=== PATIENT | female | born 1965 | race Caucasian/White ===

== ENCOUNTER → 2016-12-13 | Outpatient (CLI) | payer BC ==
[~2016-12-13] MED LIST: ACET-1311 PO; ACET-749 PO; ASPI-390 PO; ATV5 PO; ATV5X PO; BUTA1CAP17 PO; BUTACAP10 PO; CLON0.1T12 PO; CLR10 PO; CTP1CL PO; CYAN50TA2 PO; CYM30 PO; DIPH50TA10 PO; DULO-24 PO; FLNIN/ NAE; GABA300C19 PO; INDSR/120 PO; LAMO25TA PO; LMC25 PO; LRS10 PO; MAGN400T6 PO; MCRB100HP PO; METH4TAB31 PO; NARA1TAB14 PO; NCDT21 EXT; NORT10CA PO; NORT10CA4 PO; NORT25CA PO; NORT50CA PO; NORT75CA2 PO; NRT/25 PO; NYSS/ PO; OMEP40CA41 PO; ONDA4TAB9 PO; OXYC-57 PO; POTA99TA PO; POTASSIUM; PRED20TA PO; PROC1TAB5 PO; PROP120C PO; RXC5 PO; TPM25 PO; ULT50 PO; VERA120T65 PO; VERA180C3 PO; VERA240C3 PO; VRPSR180 PO; ZLF/50 PO; ZOLM1TAB3 PO
--- NOTE | 2016-12-13 14:07 | DIAGNOSTIC IMAGING REPORT ---
CT OF THE ABDOMEN AND PELVIS WITHOUT CONTRAST, STONE PROTOCOL CLINICAL HISTORY: Right-sided abdominal pain and hematuria. Evaluate for stone. COMPARISON STUDY: CT of the abdomen and pelvis June 27, 2016. TECHNIQUE: Helical axial images of the abdomen and pelvis were obtained without IV or oral contrast according to renal stone protocol. FINDINGS: No renal, ureteral or bladder calculi are identified although evaluation is mildly compromised by streak artifact from lumbar spine hardware. There is no hydronephrosis or hydroureter. Evaluation of the remainder of the abdomen and pelvis is suboptimal on this unenhanced exam. Unenhanced images of liver, spleen, adrenal glands and pancreas are normal. The caliber of small and large bowel are normal. There is a moderate amount of stool within the colon. There is minimal stool within the rectum. The appendix is not visualized but there is no right lower quadrant inflammation. No lymphadenopathy is identified on this unenhanced exam. There is no ascites. No suspicious osseous lesions are present. IMPRESSION: 1. No urinary calculi or hydronephrosis. 2. No acute process identified within the abdomen or pelvis on unenhanced exam. Nonvisualization of the appendix but no right lower quadrant inflammation. 3. Moderate amount of stool within the colon. Electronically signed by: Rehan Damon M.D. 12/13/2016 2:05 PM Dictated Date/Time: 12/13/2016 1:59 PM
== END | disposition home or self-care (01) ==
LOC: C.CTS 13:43
PROVIDERS: ATTEND Nurse Practitioner Family
DX: R10.31 Right lower quadrant pain (principal); M54.5 Low back pain; R31.9 Hematuria, unspecified; R11.0 Nausea

== ENCOUNTER 2017-01-24 16:50 | Emergency (ER) | payer BC ==
[~2017-01-24] VITALS: Ht 165.1 cm; Wt 49.6 kg
[~2017-01-24 16:50] MED LIST changes: -ACET-749 PO; -ASPI-390 PO; -ATV5 PO; -ATV5X PO; -BUTACAP10 PO; -CLR10 PO; -CTP1CL PO; -CYAN50TA2 PO; -CYM30 PO; -DIPH50TA10 PO; -FLNIN/ NAE; -LAMO25TA PO; -LMC25 PO; -LRS10 PO; -MAGN400T6 PO; -MCRB100HP PO; -METH4TAB31 PO; -NARA1TAB14 PO; -NCDT21 EXT; -NORT10CA PO; -NORT10CA4 PO; -NORT25CA PO; -NORT50CA PO; -NRT/25 PO; -NYSS/ PO; -OMEP40CA41 PO; -ONDA4TAB9 PO; -POTA99TA PO; -POTASSIUM; -PRED20TA PO; -PROC1TAB5 PO; -PROP120C PO; -RXC5 PO; -TPM25 PO; -ULT50 PO; -VERA120T65 PO; -VERA180C3 PO; -VERA240C3 PO; -VRPSR180 PO; -ZLF/50 PO
[2017-01-24 16:56] VITALS: TEMP 36.8; Ht 165.1 cm; Wt 49.6 kg
[2017-01-24] MEDS ORDERED: MoRPHine SULFATE 10 MG/ML CARP/VIAL IM STA (17:08)
[2017-01-24] MEDS ORDERED: DiphenhydrAMINE HCL 50 MG/ML VIAL IM STA (17:08)
[2017-01-24] MEDS ORDERED: KETOROLAC TROMETHAMINE 60 MG/2 ML VIAL IM STA (17:08)
--- NOTE | 2017-01-24 17:11 | EMERGENCY ROOM VISIT NOTE ---
History Report prepared by Rodolfo: Brandan Bennett Under the Supervision of: Dr. Jason Sanchez D.O. First contact with patient: 16:58 Chief Complaint: HEADACHE Stated Complaint: MIGRAINE History of Present Illness The patient is a 51 year old female who presents to the Emergency Room with complaints of persistent migraine for the past 8 days. She describes the discomfort in her head as constant and severe. The discomfort is on her right side behind her right eye and goes to the back of her neck and into her head. She also complains of nausea and vomiting. The patient started taking Topamax last night and notes that has not helped relieve her symptoms. The patient presented to her PCP last night and was given a shot of Toradol. This helped calm her down, but did not relieve her symptoms. She denies fevers or weakness. The patient notes this is like her normal migraines. Source of History: patient Onset: 8 days Position: head Symptom Intensity: severe Timing: constant, other (persistent) Associated Symptoms: + nausea, + vomiting, No fevers, No weakness Review of Systems See HPI for pertinent positives & negatives. A total of 10 systems reviewed and were otherwise negative. Past Medical & Surgical Medical Problems: (1) Chronic migraine without aura (2) DDD (degenerative disc disease) (3) H/O gastric ulcer Family History No pertinent family history Social History Smoking Status: Current Every Day Smoker Alcohol Use: occasionally Marital Status: Current/Historical Medications Scheduled Acetaminophen (Tylenol), 650 MG PO PRN Dinxtifodf-Nnekslemetdyc-Zegtk (Fioricet), 1 TAB PO PRN UD Clonidine Hcl (Catapres), 1 TAB PO BID Cyanocobalamin (Vitamin B-12), 1 TAB PO QAM Duloxetine HCl (Cymbalta), 1 CAP PO QAM Gabapentin (Neurontin), 600 MG PO TID Nortriptyline Hcl (Pamelor), 75 MG PO QHS Omeprazole (Prilosec), 40 MG PO QAM Propranolol Hcl (Inderal La), 120 MG PO QAM Zolmitriptan (Zomig), 5 MG PO PRN Scheduled PRN Oxycodone/Acetaminophen 5MG/325MG (Percocet 5MG/325MG), 1-2 TABLETS PO Q4H PRN for Pain Allergies Coded Allergies: Penicillins (Verified Allergy, Severe, ANAPHYLAXIS, 08/28/16) Sulfa Antibiotics (Verified Allergy, Intermediate, RASH, 08/28/16) Ciprofloxacin (Verified Allergy, Mild, Rash, 08/28/16) Clarithromycin (Verified Allergy, Mild, itching, 08/28/16) Quinolones (Verified Allergy, Mild, ITCHING RASH, 08/28/16) Lesage (Verified Adverse Reaction, Severe, SUICIDAL,ANGRY, 09/04/16) Oxycodone (Verified Adverse Reaction, Mild, STOMACH ISSUES, 09/04/16) Ketorolac Tromethamine (Verified Adverse Reaction, Unknown, HX STOMACH ULCERS-TOLD NOT TO TAKE, 09/04/16) NSAIDs (Verified Adverse Reaction, Unknown, HX STOMAXCH ULCERS-TOLD NOT TO TAKE, 09/04/16) Tramadol (Verified Adverse Reaction, Unknown, HX STOMACH ULCERS-NOT TO TAKE, 09/04/16) Physical Exam Vital Signs Date Time Temp Pulse Resp B/P Pulse Ox O2 Delivery O2 Flow Rate FiO2 01/24/17 18:27 65 16 158/84 100 01/24/17 16:56 36.8 77 18 155/92 100 Room Air Physical Exam GENERAL: Patient is awake alert, uncomfortable and mildly anxious appearing. EYES: The conjunctivae are clear. The pupils are round and reactive. EARS, NOSE, MOUTH AND THROAT: The nose is without any evidence of any deformity. Mucous membranes are moist tongue is midline NECK: The neck is nontender and supple. RESPIRATORY: Normal respiratory effort is noted there is no evidence of wheezing rhonchi or rales CARDIOVASCULAR: Regular rate and rhythm noted there no murmurs rubs or gallops normal S1 normal S2 GASTROINTESTINAL: The abdomen is soft. Bowel sounds are present in all quadrants. Abdomen is nontender MUSCULOSKELETAL/EXTREMITIES: There is no evidence of gross deformity full range of motion is noted in the hips and shoulders SKIN: There is no obvious evidence of any rash. There are no petechiae, pallor or cyanosis noted. NEUROLOGIC: Patient is awake alert and oriented x3 strength is symmetric patellar reflexes are 2+ bilaterally Medical Decision & Procedures Medications Administered Medications (Trade) Dose Ordered Sig/Yanet Route Start Time Stop Time Status Last Admin Dose Admin Morphine Sulfate (MoRPHine SULFATE INJ) 10 mg NOW STAT IM 01/24/17 17:08 01/24/17 17:09 DC 01/24/17 17:08 10 MG Ondansetron HCl (Zofran Odt) 4 mg ONE ONCE PO 01/24/17 17:15 01/24/17 17:16 DC 01/24/17 17:20 4 MG Diphenhydramine HCl (Benadryl Inj) 25 mg NOW STAT IM 01/24/17 17:08 01/24/17 17:09 DC 01/24/17 17:19 25 MG Ketorolac Tromethamine (Toradol Inj) 60 mg NOW STAT IM 01/24/17 17:08 01/24/17 17:09 DC 01/24/17 17:20 60 MG ED Course 170: The patient was evaluated in room B3. A complete history and physical examination were performed. 1708: Ordered Toradol Inj 60 mg IM, Benadryl Inj 25 mg IM, Morphine Sulfate 10 mg IM. 171: Ordered Zofran Odt 4 mg PO. 1755: At this time, I reevaluated the patient and she was feeling better. 1814: Upon reevaluation, the patient is resting. I discussed the results and treatment plan with her. She verbalized agreement of the treatment plan. The patient was discharged home. Medical Decision Differential diagnosis: Etiologies such as migraine headache, meningitis, sinusitis, CO exposure, ICH, SAH, infection, tumor, headache, sinus thrombosis, arterial dissection, as well as others were entertained. Nursing notes reviewed. The patient is a 51-year-old female who presented to the emergency department for an evaluation of headache. The patient states that she has a history of chronic headache and this feels similar to previous headaches in the past. The patient did not have any fever or meningismus. She had no focal neurologic deficits on physical exam. I did review the patient's previous electronic medical records. She was treated with medications that she is received in the past. On subsequent reevaluation she was feeling much better. She was encouraged to rest and avoid any strenuous activity. She was also encouraged to call her primary care physician to schedule a follow-up appointment to discuss the change in her headache pattern. She was also encouraged to return to the emergency department immediately if symptoms change worsen or the need arises. Otherwise she was encouraged to continue all medications as prescribed. Impression Primary Impression: Migraine Additional Impression: Head ache Scribe Attestation The scribe's documentation has been prepared under my direction and personally reviewed by me in its entirety. I confirm that the note above accurately reflects all work, treatment, procedures, and medical decision making performed by me. Departure Information Dispostion Home / Self-Care Referrals Nadine Marte (PCP) Forms HOME CARE DOCUMENTATION FORM, IMPORTANT VISIT INFORMATION Patient Instructions Headaches Migraine and Tension, My [facility] Additional Instructions Follow-up with your family doctor soon as possible. Continue all medications as prescribed. Rest and avoid any strenuous activity. Problem Qualifiers Primary Impression: Migraine Migraine type: without aura Status migrainosus presence: without status migrainosus Intractability: not intractable Qualified Codes: G43.009 - Migraine without aura, not intractable, without status migrainosus Additional Impression:
[2017-01-24] MEDS ORDERED: ONDANSETRON 4MG OD TAB PO ONE (17:15)
[2017-01-24 18:27] VITALS: BP 158/84; PULSE 65; O2SAT 100
[2017-02-16] MEDS ORDERED: NORT10CA PO (15:31)
[2017-02-16] MEDS ORDERED: NARA1TAB14 PO (18:49)
[2017-02-16] MEDS ORDERED: ACET-749 PO (18:49)
[2017-02-20] MEDS ORDERED: METH4TAB31 PO (10:20)
[2017-02-20] MEDS ORDERED: NORT10CA4 PO (10:20)
[2017-02-20] MEDS ORDERED: LMC25 PO ×2 (10:20→14:24)
[2017-02-20] MEDS ORDERED: VRPSR180 PO (10:20)
[2017-02-20] MEDS ORDERED: NCDT21 EXT (10:20)
[2017-02-20] MEDS ORDERED: NORT25CA PO (14:24)
[2017-03-11] MEDS ORDERED: POTASSIUM (11:04)
[2017-03-11] MEDS ORDERED: LAMO25TA PO (11:04)
[2017-03-11] MEDS ORDERED: NORT50CA PO (11:06)
[2017-03-19] MEDS ORDERED: ATV5 PO (10:25)
[2017-03-19] MEDS ORDERED: RXC5 PO (10:25)
[2017-04-22] MEDS ORDERED: CLR10 PO (11:04)
[2017-04-22] MEDS ORDERED: VRPSR180 PO (11:04)
[2017-04-22] MEDS ORDERED: PROC1TAB5 PO (11:04)
[2017-04-22] MEDS ORDERED: OMEP40CA41 PO (11:41)
[2017-07-11] MEDS ORDERED: NRT/25 PO (14:36)
[2017-07-11] MEDS ORDERED: PRED20TA PO (14:36)
== END 2017-01-24 18:31 | disposition home or self-care (01) ==
LOC: C.EDB 16:51
DX: G43.909 Migraine, unspecified, not intractable, without status migrainosus (principal); F17.200 Nicotine dependence, unspecified, uncomplicated; Z87.11 Personal history of peptic ulcer disease; Z79.899 Other long term (current) drug therapy; Z88.0 Allergy status to penicillin; Z88.2 Allergy status to sulfonamides; Z88.5 Allergy status to narcotic agent; Z88.8 Allergy status to other drugs, medicaments and biological substances

== ENCOUNTER 2017-01-26 14:00 | Emergency (ER) | payer BC ==
[~2017-01-26] VITALS: Ht 165.1 cm; Wt 50.1 kg
[2017-01-26 14:10] VITALS: TEMP 36.9; Ht 165.1 cm; Wt 50.1 kg
[2017-01-26] MEDS ORDERED: PROCHLORPERAZINE 5 MG/ML 2 ML VIAL IV STA (14:27)
[2017-01-26] MEDS ORDERED: SODIUM CHLORIDE 0.9% 1000ML 1,000 ML IV STA (14:27)
[2017-01-26] MEDS ORDERED: DiphenhydrAMINE HCL 50 MG/ML VIAL IV STA (14:27)
[2017-01-26 14:53] LABS: BASO % 0.4 %; BASO ABS # 0.05 K/uL (0-0.2); COMPLETE YES; EOS % 0.5 %; HEMATOCRIT 40.8 % (37-47); IG% 0.3 %; LYMPH % 28.2 %; LYMPH ABS # 3.56 K/uL (1.2-3.4); MEAN CELL VOLUME 95.3 fL (80-100); MEAN CORPUSCULAR HGB CONC 33.6 g/dl (32-36); MEAN PLATELET VOLUME 9.7 fL (7.4-10.4); MONO % 5.8 %; NEUT % 64.8 %; PLATELET COUNT 253 K/uL (130-400); RED BLOOD COUNT 4.28 M/uL (4.2-5.4); WHITE BLOOD COUNT 12.62 K/uL (4.8-10.8)
[2017-01-26] MEDS ORDERED: MAGNESIUM SULFATE 1GM / D5W 1 GM BAG IV STA (15:10)
[2017-01-26 15:14] LABS: BUN/CREATININE RATIO 13.7 (10-20); CALCIUM 8.6 mg/dl (8.5-10.1); CREATININE 1.1 mg/dl (0.60-1.20); POTASSIUM 4.1 mmol/L (3.5-5.1)
[2017-01-26] MEDS ORDERED: TPM25 PO (15:31)
[2017-01-26] MEDS ORDERED: HYDROmorphone INJ 1 MG/ML SYR IV STA (16:30)
[2017-01-26 17:15] VITALS: BP 131/59; PULSE 67; O2SAT 97
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
[2017-02-16] MEDS ORDERED: NORT10CA PO (15:31)
[2017-02-16] MEDS ORDERED: ACET-749 PO (18:49)
[2017-02-16] MEDS ORDERED: NARA1TAB14 PO (18:49)
[2017-02-20] MEDS ORDERED: NCDT21 EXT (10:20)
[2017-02-20] MEDS ORDERED: NORT10CA4 PO (10:20)
[2017-02-20] MEDS ORDERED: LMC25 PO ×2 (10:20→14:24)
[2017-02-20] MEDS ORDERED: VRPSR180 PO (10:20)
[2017-02-20] MEDS ORDERED: METH4TAB31 PO (10:20)
[2017-02-20] MEDS ORDERED: NORT25CA PO (14:24)
[2017-03-11] MEDS ORDERED: POTASSIUM (11:04)
[2017-03-11] MEDS ORDERED: LAMO25TA PO (11:04)
[2017-03-11] MEDS ORDERED: NORT50CA PO (11:06)
[2017-03-19] MEDS ORDERED: RXC5 PO (10:25)
[2017-03-19] MEDS ORDERED: ATV5 PO (10:25)
[2017-04-22] MEDS ORDERED: PROC1TAB5 PO (11:04)
[2017-04-22] MEDS ORDERED: VRPSR180 PO (11:04)
[2017-04-22] MEDS ORDERED: CLR10 PO (11:04)
[2017-04-22] MEDS ORDERED: OMEP40CA41 PO (11:41)
[2017-07-11] MEDS ORDERED: NRT/25 PO (14:36)
[2017-07-11] MEDS ORDERED: PRED20TA PO (14:36)
== END 2017-01-26 17:16 | disposition home or self-care (01) ==
LOC: C.EDB 14:00 → C.EDC 17:16
DX: R51 Headache (principal); R11.0 Nausea; K92.1 Melena; F17.210 Nicotine dependence, cigarettes, uncomplicated; Z79.899 Other long term (current) drug therapy

== ENCOUNTER 2017-01-29 15:12 | Emergency (ER) | payer BC ==
[~2017-01-29] VITALS: Ht 165.1 cm; Wt 49.0 kg
[~2017-01-29 15:12] MED LIST changes: -ACET-1311 PO; -BUTA1CAP17 PO; -DULO-24 PO; -GABA300C19 PO; -NORT75CA2 PO; -OXYC-57 PO; +TPM25 PO; -ZOLM1TAB3 PO
[2017-01-29 15:15] VITALS: TEMP 36.8; Ht 165.1 cm; Wt 49.0 kg
[2017-01-29] MEDS ORDERED: CYM30 PO (15:31)
[2017-01-29] MEDS ORDERED: PROP120C PO (15:37)
[2017-01-29] MEDS ORDERED: MAGNESIUM SULFATE 1GM / D5W 2 GM in PREMIXED IN D5W 100 ML IV STA (15:42)
[2017-01-29] MEDS ORDERED: ACETAMINOPHEN 500 MG TAB PO STA (15:42)
[2017-01-29] MEDS ORDERED: HALOPERIDOL LACTATE 5 MG/ML 1 ML VIAL IM STA (15:42)
[2017-01-29] MEDS ORDERED: SODIUM CHLORIDE 0.9% 1000ML 1,000 ML IV ONE (15:45)
[2017-01-29] MEDS ORDERED: MAGNESIUM SULFATE 1GM / D5W 1 GM in PREMIXED IN D5W 100 ML IV SCH (16:00)
[2017-01-29] MEDS ORDERED: MAGNESIUM SULFATE 1GM / D5W 1 GM BAG ONE (16:00)
[2017-01-29] MEDS ORDERED: ONDANSETRON 4MG OD TAB PO STA (16:23)
[2017-01-29 17:36] VITALS: BP 124/70; PULSE 62; O2SAT 99
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
[2017-01-29] MEDS ORDERED: CYAN50TA2 PO (22:06)
[2017-02-16] MEDS ORDERED: NORT10CA PO (15:31)
[2017-02-16] MEDS ORDERED: NARA1TAB14 PO (18:49)
[2017-02-16] MEDS ORDERED: ACET-749 PO (18:49)
[2017-02-20] MEDS ORDERED: LMC25 PO ×2 (10:20→14:24)
[2017-02-20] MEDS ORDERED: METH4TAB31 PO (10:20)
[2017-02-20] MEDS ORDERED: NORT10CA4 PO (10:20)
[2017-02-20] MEDS ORDERED: VRPSR180 PO (10:20)
[2017-02-20] MEDS ORDERED: NCDT21 EXT (10:20)
[2017-02-20] MEDS ORDERED: NORT25CA PO (14:24)
[2017-03-11] MEDS ORDERED: LAMO25TA PO (11:04)
[2017-03-11] MEDS ORDERED: POTASSIUM (11:04)
[2017-03-11] MEDS ORDERED: NORT50CA PO (11:06)
[2017-03-19] MEDS ORDERED: ATV5 PO (10:25)
[2017-03-19] MEDS ORDERED: RXC5 PO (10:25)
[2017-04-22] MEDS ORDERED: VRPSR180 PO (11:04)
[2017-04-22] MEDS ORDERED: CLR10 PO (11:04)
[2017-04-22] MEDS ORDERED: PROC1TAB5 PO (11:04)
[2017-04-22] MEDS ORDERED: OMEP40CA41 PO (11:41)
[2017-07-11] MEDS ORDERED: NRT/25 PO (14:36)
[2017-07-11] MEDS ORDERED: PRED20TA PO (14:36)
== END 2017-01-29 18:18 | disposition home or self-care (01) ==
LOC: C.EDB 15:14 → C.EDC 18:18
DX: G43.909 Migraine, unspecified, not intractable, without status migrainosus (principal); F17.200 Nicotine dependence, unspecified, uncomplicated; Z87.11 Personal history of peptic ulcer disease; Z79.899 Other long term (current) drug therapy; Z88.0 Allergy status to penicillin; Z88.2 Allergy status to sulfonamides; Z88.5 Allergy status to narcotic agent; Z88.8 Allergy status to other drugs, medicaments and biological substances

== ENCOUNTER → 2017-02-03 | Outpatient (CLI) | payer BC ==
[~2017-02-03] MED LIST changes: +ACET-749 PO; +ASPI-390 PO; +ATV5 PO; +ATV5X PO; +BUTA1CAP17 PO; +BUTACAP10 PO; -CLON0.1T12 PO; +CLR10 PO; +CTP1CL PO; +CYAN50TA2 PO; +CYM30 PO; +DIHY1INJ4 INJ; +DIPH50TA10 PO; +FLNIN/ NAE; -INDSR/120 PO; +LAMO25TA PO; +LMC25 PO; +LRS10 PO; +MAGN400T6 PO; +MCRB100HP PO; +METH4TAB31 PO; +NARA1TAB14 PO; +NCDT21 EXT; +NORT10CA PO; +NORT10CA4 PO; +NORT25CA PO; +NORT50CA PO; +NRT/25 PO; +NYSS/ PO; +OMEP40CA41 PO; +ONDA4TAB9 PO; +POTA99TA PO; +POTASSIUM; +PRED20TA PO; +PROC1TAB5 PO; +PROP120C PO; +RXC5 PO; -TPM25 PO; +ULT50 PO; +VERA120T65 PO; +VERA180C3 PO; +VERA180T10 PO; +VERA240C3 PO; +VRPSR180 PO; +ZLF/50 PO
--- NOTE | 2017-02-03 15:35 | DIAGNOSTIC IMAGING REPORT ---
MRI OF THE BRAIN WITHOUT IV CONTRAST CLINICAL HISTORY: Migraine headache. COMPARISON STUDY: MRI of the brain dated 03/22/2014. TECHNIQUE: MRI of the brain was performed utilizing various T1 and T2-weighted sequences in the axial, sagittal, and coronal planes. IV contrast was not administered for this examination. FINDINGS: Brain parenchyma: The brain parenchyma is normal in appearance. There is no hemorrhage or mass effect. There is no restricted diffusion to suggest acute ischemia. Gipson-white matter differentiation is preserved. No extra-axial fluid collection is seen. The cerebellar tonsils are normal in configuration. Ventricles, sulci, and cisterns: Normal in configuration. Pituitary and sella: There is mild prominence of the pituitary gland which is unchanged from 2014. Intracranial vasculature: Normal flow voids are maintained at the skull base. Orbits: The bony orbits are grossly intact. Orbital contents are normal in appearance. Sinuses and mastoids: Clear. Calvarium: Unremarkable. Cervical cord: Partially visualized cervical spinal cord is normal in morphology and signal intensity. IMPRESSION: No acute intracranial abnormality. Electronically signed by: Gideon Horner M.D. 02/03/2017 3:34 PM Dictated Date/Time: 02/03/2017 3:31 PM
== END | disposition home or self-care (01) ==
LOC: C.MRIBC 14:05
PROVIDERS: ATTEND Psychiatry & Neurology Neurology
DX: G43.709 Chronic migraine without aura, not intractable, without status migrainosus (principal)

== ENCOUNTER 2017-02-10 17:40 | Emergency (ER) | payer BC ==
[~2017-02-10] VITALS: Ht 165.1 cm; Wt 49.2 kg
[~2017-02-10 17:40] MED LIST changes: -ACET-749 PO; -ASPI-390 PO; -ATV5 PO; -ATV5X PO; -BUTA1CAP17 PO; -BUTACAP10 PO; -CLR10 PO; -CTP1CL PO; -DIHY1INJ4 INJ; -DIPH50TA10 PO; -FLNIN/ NAE; -LAMO25TA PO; -LMC25 PO; -LRS10 PO; -MAGN400T6 PO; -MCRB100HP PO; -METH4TAB31 PO; -NARA1TAB14 PO; -NCDT21 EXT; -NORT10CA PO; -NORT10CA4 PO; -NORT25CA PO; -NORT50CA PO; -NRT/25 PO; -NYSS/ PO; -OMEP40CA41 PO; -ONDA4TAB9 PO; -POTA99TA PO; -POTASSIUM; -PRED20TA PO; -PROC1TAB5 PO; -RXC5 PO; -ULT50 PO; -VERA120T65 PO; -VERA180C3 PO; -VERA180T10 PO; -VERA240C3 PO; -VRPSR180 PO; -ZLF/50 PO
[2017-02-10 17:48] VITALS: TEMP 37; Ht 165.1 cm; Wt 49.2 kg
[2017-02-10] MEDS ORDERED: SODIUM CHLORIDE 0.9% 1000ML 1,000 ML IV STA (18:21)
[2017-02-10] MEDS ORDERED: KETOROLAC TROMETHAMINE 30 MG/ML VIAL IV STA (18:21)
[2017-02-10] MEDS ORDERED: PROCHLORPERAZINE 5 MG/ML 2 ML VIAL IV STA (18:21)
[2017-02-10] MEDS ORDERED: HYDROmorphone INJ 1 MG/ML SYR IV STA (18:21)
[2017-02-10 18:44] LABS: BASO % 0.6 %; BASO ABS # 0.05 K/uL (0-0.2); COMPLETE YES; EOS % 0.8 %; HEMATOCRIT 42.4 % (37-47); IG% 0.2 %; LYMPH % 40.7 %; LYMPH ABS # 3.66 K/uL (1.2-3.4); MEAN CELL VOLUME 95.5 fL (80-100); MEAN CORPUSCULAR HEMOGLOBIN 31.8 pg (25-34); MEAN CORPUSCULAR HGB CONC 33.3 g/dl (32-36); MEAN PLATELET VOLUME 9.3 fL (7.4-10.4); MONO % 5.6 %; NEUT % 52.1 %; PLATELET COUNT 285 K/uL (130-400); RED BLOOD COUNT 4.44 M/uL (4.2-5.4); WHITE BLOOD COUNT 8.99 K/uL (4.8-10.8)
[2017-02-10] MEDS ORDERED: MCRB100HP PO (18:49)
[2017-02-10 19:00] LABS: BUN/CREATININE RATIO 10.6 (10-20); CALCIUM 8.7 mg/dl (8.5-10.1); CREATININE 0.65 mg/dl (0.60-1.20); POTASSIUM 3.4 mmol/L (3.5-5.1)
[2017-02-10 19:57] VITALS: BP 177/97; PULSE 73; O2SAT 99
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
[2017-02-16] MEDS ORDERED: NORT10CA PO (15:31)
[2017-02-16] MEDS ORDERED: NARA1TAB14 PO (18:49)
[2017-02-16] MEDS ORDERED: ACET-749 PO (18:49)
[2017-02-20] MEDS ORDERED: LMC25 PO ×2 (10:20→14:24)
[2017-02-20] MEDS ORDERED: NORT10CA4 PO (10:20)
[2017-02-20] MEDS ORDERED: METH4TAB31 PO (10:20)
[2017-02-20] MEDS ORDERED: NCDT21 EXT (10:20)
[2017-02-20] MEDS ORDERED: VRPSR180 PO (10:20)
[2017-02-20] MEDS ORDERED: NORT25CA PO (14:24)
[2017-03-11] MEDS ORDERED: POTASSIUM (11:04)
[2017-03-11] MEDS ORDERED: LAMO25TA PO (11:04)
[2017-03-11] MEDS ORDERED: NORT50CA PO (11:06)
[2017-03-19] MEDS ORDERED: ATV5 PO (10:25)
[2017-03-19] MEDS ORDERED: RXC5 PO (10:25)
[2017-04-22] MEDS ORDERED: PROC1TAB5 PO (11:04)
[2017-04-22] MEDS ORDERED: VRPSR180 PO (11:04)
[2017-04-22] MEDS ORDERED: CLR10 PO (11:04)
[2017-04-22] MEDS ORDERED: OMEP40CA41 PO (11:41)
[2017-07-11] MEDS ORDERED: NRT/25 PO (14:36)
[2017-07-11] MEDS ORDERED: PRED20TA PO (14:36)
== END 2017-02-10 20:00 | disposition home or self-care (01) ==
LOC: C.EDB 17:41 → C.EDD 20:00
DX: R51 Headache (principal)

== ENCOUNTER 2017-02-16 20:24 | Emergency (ER) | payer BC ==
[~2017-02-16] VITALS: Ht 165.1 cm; Wt 48.4 kg
[~2017-02-16 20:24] MED LIST changes: +ACET-749 PO; -CYAN50TA2 PO; -CYM30 PO; +MCRB100HP PO; +NARA1TAB14 PO; +NORT10CA PO; -PROP120C PO
[2017-02-16 20:33] VITALS: TEMP 36.9; Ht 165.1 cm; Wt 48.4 kg
[2017-02-16] MEDS ORDERED: LORAZEPAM 2 MG/ML 1 ML VIAL IV STA ×2 (20:50→22:20)
[2017-02-16] MEDS ORDERED: SODIUM CHLORIDE 0.9% 1000ML 1,000 ML IV STA (20:50)
[2017-02-16] MEDS ORDERED: PROCHLORPERAZINE 5 MG/ML 2 ML VIAL IV STA (20:50)
[2017-02-16] MEDS ORDERED: DiphenhydrAMINE HCL 50 MG/ML VIAL IV STA (20:50)
[2017-02-16] MEDS ORDERED: VERA120T65 PO (21:13)
[2017-02-16] MEDS ORDERED: SODIUM CHLORIDE 0.9% 500ML 500 ML IV STA (22:20)
[2017-02-16] MEDS ORDERED: PROMETHAZINE HCL INJ 25 MG in SODIUM CHLORIDE 0.9% 50ML 50 ML IV STA (22:20)
[2017-02-16] MEDS ORDERED: DEXAMETHASONE SOD INJ 10 MG/ML VIAL IV ONE (22:30)
--- NOTE | 2017-02-16 23:06 | EMERGENCY ROOM VISIT NOTE ---
History First contact with patient: 20:36 Chief Complaint: HEADACHE Stated Complaint: MIGRAINE History of Present Illness The patient is a 51 year old female who presents to the Emergency Room with complaints of recurrent migraine headache. The patient reports that she has had an increased frequency of migraines over the past month. She recently had an MRI of the brain performed that was normal. She is currently under the management of Dr. Jay, neurologist. She has suggested that the patient follow-up with the [facility] in [place]. The patient reports that she has to make that appointment on her own. The patient is also awaiting an appointment for pain management. She does have a upcoming appointment with her PCP as well. The patient reports that this headache is similar to all prior migraines. It is not the worse headache of her life. The reports that the medications that have been provided lately only last until she gets home. She is not eating well, and has lost weight over the past month. She rates her headache a 10 out of 10. Review of Systems 10 system review was performed and was negative except for pertinent positives and negatives as indicated in history of present illness Past Medical/Surgical History Medical Problems: (1) Chronic migraine without aura (2) DDD (degenerative disc disease) (3) H/O gastric ulcer Family History No pertinent family history Social History Smoking Status: Never Smoker Alcohol Use: occasionally Marital Status: Current/Historical Medications Scheduled Clonidine Hcl (Catapres), 0.1 MG PO BID Magnesium Oxide (Mag-Ox), 400 MG PO DAILY Nortriptyline Hcl (Pamelor), 30 MG PO HS Omeprazole (Prilosec), 40 MG PO QAM Verapamil HCl (Verapamil HCl ER), 120 MG PO DAILY Scheduled PRN Acetaminophen/Codeine (Tylenol W/Codeine #3), 1 TAB PO BID PRN for Severe Headache Vmqdwqo-Edmlmmywfyxfs-Ckijofex (Excedrin Migraine), 1 TAB PO UD PRN for Migraine Naratriptan Hcl (Amerge), 2.5 MG PO UD PRN for Headache Ondansetron (Ondansetron HCl), 4 MG PO Q8 PRN for Nausea Allergies Coded Allergies: Penicillins (Verified Allergy, Severe, ANAPHYLAXIS, 02/10/17) Sulfa Antibiotics (Verified Allergy, Intermediate, RASH, 02/10/17) Ciprofloxacin (Verified Allergy, Mild, Rash, 02/10/17) Clarithromycin (Verified Allergy, Mild, itching, 02/10/17) Quinolones (Verified Allergy, Mild, ITCHING RASH, 02/10/17) [place] (Verified Adverse Reaction, Severe, SUICIDAL,ANGRY, 02/10/17) Oxycodone (Verified Adverse Reaction, Mild, STOMACH ISSUES, 02/10/17) Ketorolac Tromethamine (Verified Adverse Reaction, Unknown, HX STOMACH ULCERS-TOLD NOT TO TAKE, 02/10/17) NSAIDs (Verified Adverse Reaction, Unknown, HX STOMAXCH ULCERS-TOLD NOT TO TAKE, 02/10/17) Tramadol (Verified Adverse Reaction, Unknown, HX STOMACH ULCERS-NOT TO TAKE, 02/10/17) Physical Exam Vital Signs Date Time Temp Pulse Resp B/P Pulse Ox O2 Delivery O2 Flow Rate FiO2 02/16/17 22:25 75 20 180/96 98 Room Air 02/16/17 21:45 71 20 166/90 99 Room Air 02/16/17 20:33 36.9 100 18 135/83 96 Room Air Physical Exam CONSTITUTIONAL: Healthy and well nourished. Alert and oriented X 3 with positive affect. HEENT: Normocephalic, atraumatic. Pupils equal, round and reactive. Patient is photophobic, precluding funduscopic exam. No nystagmus. NECK: Full active range of motion without discomfort. No nuchal rigidity, JVD or carotid bruits. RESPIRATORY: Clear to auscultation bilaterally with no wheezing, crackles, rhonchi or stridor. CARDIOVASCULAR: Regular rate and rhythm with no murmurs, rubs or gallops. GASTROINTESTINAL: Bowel sounds present in all quadrants. Soft and nontender to palpation. MUSCULOSKELETAL: Full range of motion of all joints without discomfort. INTEGUMENTARY: No rash or other significant dermatologic conditions noted. NEUROLOGIC: Cranial nerves II-XII grossly intact. No focal neurologic deficits noted. Normal finger to nose test. Negative pronator drift. Patient ambulates to her room without ataxia. Medical Decision & Procedures Medications Administered Medications (Trade) Dose Ordered Sig/Yanet Route Start Time Stop Time Status Last Admin Dose Admin Sodium Chloride (Nss 1000ml) 1,000 ml @ 999 mls/hr Q1H1M STAT IV 02/16/17 20:50 02/16/17 21:50 DC 02/16/17 21:14 999 MLS/HR Diphenhydramine HCl (Benadryl Inj) 50 mg NOW STAT IV 02/16/17 20:50 02/16/17 20:53 DC 02/16/17 21:14 50 MG Prochlorperazine Edisylate (Compazine Inj) 10 mg NOW STAT IV 02/16/17 20:50 02/16/17 20:53 DC 02/16/17 21:14 10 MG Lorazepam 1 mg 1 mg NOW STAT IV 02/16/17 20:50 02/16/17 20:53 DC 02/16/17 21:14 1 MG Promethazine HCl/ Sodium Chloride (Phenergan Inj/ Nss 50ml) 51 ml @ 204 mls/hr NOW STAT IV 02/16/17 22:20 02/16/17 22:34 DC 02/16/17 22:52 204 MLS/HR Dexamethasone Sodium Phosphate (Decadron Inj) 10 mg NOW ONCE IV 02/16/17 22:30 02/16/17 22:31 DC 02/16/17 22:52 10 MG ED Course Patient history and physical exam were performed. Nurse's notes were reviewed. Vital signs were reviewed and were normal. Review medical records shows that this is the patient's fifth visit to the emergency department for migraines. I also reviewed her MRI from 02/03/17 that was normal. I also reviewed medication treatment from her prior visits. The patient and reports that her last visit did not provide any significant long-standing relief of her migraines. Her reports that she has been treated with multiple medications without any significant relief. I explained to both the patient and that she would best be treated as recommended by her neurologist as there are other trigger regimens that worked better for migraines. The wanted something to "knock her out" that she can sleep and start eating again. She reports that corticosteroids do not provide any relief. She also reports that she has been instructed to avoid NSAIDs and Toradol. I again suggested that she speak with her PCP or neurologist for additional treatment options. While in the emergency department, IV access was established, and the patient was hydrated with a liter normal saline. She was initially administered Benadryl 50 mg, Compazine 10 mg and Ativan 1 mg IVP. After one hour, the patient was reassessed, and reported that her pain decreased from a 10 out of 10 to a 7 out of 10. She reports that Benadryl usually makes her hyperactive. The patient and are both requesting additional medication. At this point, although the patient reports that the steroids have not helped in the past, she does not recall receiving them parentally. She agreed to try this intervention as well. She was given an additional Ativan 1 mg, Phenergan 25 mg and Decadron 10 mg IVP. At this time, care was transferred to Chriss Ambrose PA-C at change of shift. Please see his dictation for further reassessment findings and discharge instructions. Medical Decision Patient presents with complaint of a headache that is similar to all prior migrainous events. It is not the worse headache of her life. The patient has also had a recent MRI of the head that was normal. For this reason, I do not feel that any further imaging studies are warranted. She is also had extensive laboratory study workup in the past. She is also under the care of a neurologist. I do not suspect intracranial bleed, abscess, meningitis, CVA/TIA , thromboembolic event or carbon monoxide poisoning. Impression Primary Impression: Migraine Departure Information Referrals Nadine Marte (PCP) Patient Instructions My [facility] Problem Qualifiers Primary Impression: Migraine Migraine type: unspecified Status migrainosus presence: without status migrainosus Intractability: not intractable Qualified Codes: G43.909 - Migraine, unspecified, not intractable, without status migrainosus
[2017-02-16 23:37] VITALS: BP 161/88; PULSE 72; O2SAT 100
--- NOTE | 2017-02-16 23:53 | EMERGENCY ROOM VISIT NOTE ---
ED Visit Note Patient care was assumed from Rafael Zeng PA-C at the time of shift change. Mr. Zeng's dictation for full history of present illness and emergency Department course prior to my assumption of care. In short, the patient has a history of migraine headaches. She has been seen several times in the emergency department over the past 3-4 weeks with this complaint. She has a recent MRI this month that does not show significant abnormality. The patient has been treated with multiple medications here in the department, and states that her pain is now a 3/10. She does request discharge home, and this appears reasonable. She be discharged home under the care of her with instructions to follow with her primary care physician. Patient was pleased with this plan of care and was invited back to the ER anytime with any new, worsening, or concerning symptoms. Problem List Medical Problems: (1) Chronic migraine without aura Status: Chronic (2) H/O gastric ulcer Status: Chronic Current/Historical Medications Scheduled Clonidine Hcl (Catapres), 0.1 MG PO BID Magnesium Oxide (Mag-Ox), 400 MG PO DAILY Nortriptyline Hcl (Pamelor), 30 MG PO HS Omeprazole (Prilosec), 40 MG PO QAM Verapamil HCl (Verapamil HCl ER), 120 MG PO DAILY Scheduled PRN Acetaminophen/Codeine (Tylenol W/Codeine #3), 1 TAB PO BID PRN for Severe Headache Xrkxiks-Rsbbwpmupvcdn-Lxptguxa (Excedrin Migraine), 1 TAB PO UD PRN for Migraine Naratriptan Hcl (Amerge), 2.5 MG PO UD PRN for Headache Ondansetron (Ondansetron HCl), 4 MG PO Q8 PRN for Nausea Allergies Coded Allergies: Penicillins (Verified Allergy, Severe, ANAPHYLAXIS, 02/10/17) Sulfa Antibiotics (Verified Allergy, Intermediate, RASH, 02/10/17) Ciprofloxacin (Verified Allergy, Mild, Rash, 02/10/17) Clarithromycin (Verified Allergy, Mild, itching, 02/10/17) Quinolones (Verified Allergy, Mild, ITCHING RASH, 02/10/17) [place] (Verified Adverse Reaction, Severe, SUICIDAL,ANGRY, 02/10/17) Oxycodone (Verified Adverse Reaction, Mild, STOMACH ISSUES, 02/10/17) Ketorolac Tromethamine (Verified Adverse Reaction, Unknown, HX STOMACH ULCERS-TOLD NOT TO TAKE, 02/10/17) NSAIDs (Verified Adverse Reaction, Unknown, HX STOMAXCH ULCERS-TOLD NOT TO TAKE, 02/10/17) Tramadol (Verified Adverse Reaction, Unknown, HX STOMACH ULCERS-NOT TO TAKE, 02/10/17) Vital Signs Date Time Temp Pulse Resp B/P Pulse Ox O2 Delivery O2 Flow Rate FiO2 02/16/17 23:37 72 16 161/88 100 Room Air 02/16/17 22:25 75 20 180/96 98 Room Air 02/16/17 21:45 71 20 166/90 99 Room Air 02/16/17 20:33 36.9 100 18 135/83 96 Room Air Medications Administered Medications (Trade) Dose Ordered Sig/Yanet Route Start Time Stop Time Status Last Admin Dose Admin Sodium Chloride (Nss 1000ml) 1,000 ml @ 999 mls/hr Q1H1M STAT IV 02/16/17 20:50 02/16/17 21:50 DC 02/16/17 21:14 999 MLS/HR Diphenhydramine HCl (Benadryl Inj) 50 mg NOW STAT IV 02/16/17 20:50 02/16/17 20:53 DC 02/16/17 21:14 50 MG Prochlorperazine Edisylate (Compazine Inj) 10 mg NOW STAT IV 02/16/17 20:50 02/16/17 20:53 DC 02/16/17 21:14 10 MG Lorazepam 1 mg 1 mg NOW STAT IV 02/16/17 20:50 02/16/17 20:53 DC 02/16/17 21:14 1 MG Promethazine HCl/ Sodium Chloride (Phenergan Inj/ Nss 50ml) 51 ml @ 204 mls/hr NOW STAT IV 02/16/17 22:20 02/16/17 22:34 DC 02/16/17 22:52 204 MLS/HR Dexamethasone Sodium Phosphate 10 mg 10 mg NOW ONCE IV 02/16/17 22:30 02/16/17 22:31 DC 02/16/17 22:52 10 MG Sodium Chloride (Nss 500ml) 500 ml @ 999 mls/hr Q31M STAT IV 02/16/17 22:20 02/16/17 22:50 DC 02/16/17 23:09 999 MLS/HR Departure Information Impression Primary Impression: Migraine Dispostion Home / Self-Care Referrals Nadine Marte (PCP) Forms HOME CARE DOCUMENTATION FORM, IMPORTANT VISIT INFORMATION Patient Instructions My [facility] Additional Instructions Rest and remain well-hydrated. Follow-up with your neurologist, PCP, pain management and the [facility] for further migraine management.
[2017-02-20] MEDS ORDERED: METH4TAB31 PO (10:20)
[2017-02-20] MEDS ORDERED: LMC25 PO ×2 (10:20→14:24)
[2017-02-20] MEDS ORDERED: NORT10CA4 PO (10:20)
[2017-02-20] MEDS ORDERED: VRPSR180 PO (10:20)
[2017-02-20] MEDS ORDERED: NCDT21 EXT (10:20)
[2017-02-20] MEDS ORDERED: NORT25CA PO (14:24)
[2017-03-11] MEDS ORDERED: POTASSIUM (11:04)
[2017-03-11] MEDS ORDERED: LAMO25TA PO (11:04)
[2017-03-11] MEDS ORDERED: NORT50CA PO (11:06)
[2017-03-19] MEDS ORDERED: ATV5 PO (10:25)
[2017-03-19] MEDS ORDERED: RXC5 PO (10:25)
[2017-04-22] MEDS ORDERED: VRPSR180 PO (11:04)
[2017-04-22] MEDS ORDERED: CLR10 PO (11:04)
[2017-04-22] MEDS ORDERED: PROC1TAB5 PO (11:04)
[2017-04-22] MEDS ORDERED: OMEP40CA41 PO (11:41)
[2017-07-11] MEDS ORDERED: NRT/25 PO (14:36)
[2017-07-11] MEDS ORDERED: PRED20TA PO (14:36)
== END 2017-02-17 | disposition home or self-care (01) ==
LOC: C.EDB 20:25
DX: G43.909 Migraine, unspecified, not intractable, without status migrainosus (principal); Z79.899 Other long term (current) drug therapy; Z87.19 Personal history of other diseases of the digestive system; Z88.0 Allergy status to penicillin; Z88.2 Allergy status to sulfonamides; Z88.5 Allergy status to narcotic agent; Z88.8 Allergy status to other drugs, medicaments and biological substances

== ENCOUNTER 2017-02-18 17:23 | Observation (INO) | payer BC ==
[~2017-02-18] VITALS: Ht 165.1 cm; Wt 48.4 kg
[~2017-02-18 17:23] MED LIST changes: -MCRB100HP PO; +VERA120T65 PO
[2017-02-18] MEDS ORDERED: METHYLPREDNISOLONE 125 MG VIAL IV STA (19:34)
[2017-02-18] MEDS ORDERED: PROMETHAZINE HCL INJ 25 MG/ML 1 ML VIAL IM STA (19:34)
[2017-02-18] MEDS ORDERED: VALPROATE SOD IV 500 MG in DEXTROSE 5% 50ML 50 ML IV STA (19:34)
[2017-02-18] MEDS ORDERED: SODIUM CHLORIDE 0.9% 1000ML 1,000 ML IV STA (19:34)
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
[2017-02-18 20:23] LABS: HEMATOCRIT 41.3 % (37-47); MEAN CELL VOLUME 96.5 fL (80-100); MEAN CORPUSCULAR HEMOGLOBIN 32.2 pg (25-34); MEAN CORPUSCULAR HGB CONC 33.4 g/dl (32-36); MEAN PLATELET VOLUME 9.4 fL (7.4-10.4); PLATELET COUNT 262 K/uL (130-400); RED BLOOD COUNT 4.28 M/uL (4.2-5.4); WHITE BLOOD COUNT 13.25 K/uL (4.8-10.8)
[2017-02-18 20:36] LABS: ALT/SGPT 13 U/L (12-78); BLOOD UREA NITROGEN 7 mg/dl (7-18); BUN/CREATININE RATIO 9.7 (10-20); CALCIUM 8.6 mg/dl (8.5-10.1); CARBON DIOXIDE 26 mmol/L (21-32); CHLORIDE 115 mmol/L (98-107); CREATININE 0.71 mg/dl (0.60-1.20); GLUCOSE 82 mg/dl (70-99); MAGNESIUM 2.4 mg/dl (1.8-2.4); POTASSIUM 3.1 mmol/L (3.5-5.1); SODIUM 147 mmol/L (136-145)
[2017-02-18 20:38] LABS: ALKALINE PHOSPHATASE 83 U/L (45-117); AST/SGOT 13 U/L (15-37); PHOSPHORUS 3.6 mg/dl (2.5-4.9)
[2017-02-18 20:42] LABS: BASO % 0.2 %; BASO ABS # 0.03 K/uL (0-0.2); COMPLETE YES; EOS % 0.2 %; IG% 0.2 %; LYMPH % 39.1 %; LYMPH ABS # 5.18 K/uL (1.2-3.4); MONO % 5.3 %
[2017-02-18] MEDS ORDERED: ACETAMINOPHEN/CODEINE 300/30MG TAB PO PRN (21:15)
[2017-02-18] MEDS ORDERED: ZOLPIDEM TARTRATE 5 MG TAB PO PRN (21:15)
[2017-02-18] MEDS ORDERED: ACETAMINOPHEN 325 MG TAB PO PRN (21:15)
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
[2017-02-18 23:43] VITALS: BP 152/82; PULSE 80; TEMP 36.4; O2SAT 100; Ht 165.1 cm; Wt 48.4 kg
[2017-02-19] MEDS ORDERED: HydrALAZINE HCL 20 MG/ML VIAL IV. PRN
[2017-02-19] MEDS ORDERED: METHYLPREDNISOLONE IV SCH ×2
[2017-02-19] MEDS ORDERED: DEXTROSE 5% IV SCH ×2
[2017-02-19] MEDS: NSS + 20MEQ KCL 1000ML 1,000 ML IV SCH ×3 (00:01→20:10)
[2017-02-19] MEDS ORDERED: KETOROLAC TROMETHAMINE 30 MG/ML VIAL IV STA (00:50)
[2017-02-19] MEDS ORDERED: IV FLUIDS COMPLETED PRN (01:00)
[2017-02-19 02:28] VITALS: O2SAT 100
[2017-02-19] MEDS ORDERED: BUTALBITAL/ACETAMIN/CAFFEINE TAB PO PRN (03:15)
[2017-02-19 07:33] LABS: COMPLETE YES; HEMATOCRIT 40.3 % (37-47); IG% 0.1 %; LYMPH ABS # 1.01 K/uL (1.2-3.4); MEAN CELL VOLUME 93.9 fL (80-100); MEAN CORPUSCULAR HEMOGLOBIN 31.7 pg (25-34); MEAN CORPUSCULAR HGB CONC 33.7 g/dl (32-36); MEAN PLATELET VOLUME 9.1 fL (7.4-10.4); MONO % 0.8 %; NEUT % 85.1 %; PLATELET COUNT 254 K/uL (130-400); RED BLOOD COUNT 4.29 M/uL (4.2-5.4); WHITE BLOOD COUNT 7.19 K/uL (4.8-10.8)
[2017-02-19 07:56] LABS: PARTIAL THROMBOPLASTIN RATIO 0.9; PROTHROMBIN TIME (PATIENT) 10.9 SECONDS (9.0-12.0)
[2017-02-19 08:00] VITALS: BP 156/79; PULSE 81; TEMP 36.8; O2SAT 97
[2017-02-19] MEDS ORDERED: METHYLPREDNISOLONE IV 500 MG in SYRINGE 0 ML IV SCH (08:00)
[2017-02-19] MEDS: PROMETHAZINE HCL 25 MG TAB PO SCH ×4 (08:00→20:10)
[2017-02-19 08:04] LABS: ALT/SGPT 15 U/L (12-78); AST/SGOT 14 U/L (15-37); BLOOD UREA NITROGEN 7 mg/dl (7-18); BUN/CREATININE RATIO 12.2 (10-20); CALCIUM 8.9 mg/dl (8.5-10.1); CARBON DIOXIDE 24 mmol/L (21-32); CHLORIDE 114 mmol/L (98-107); CREATININE 0.58 mg/dl (0.60-1.20); GLUCOSE 117 mg/dl (70-99); MAGNESIUM 2.1 mg/dl (1.8-2.4); POTASSIUM 3.9 mmol/L (3.5-5.1); SODIUM 146 mmol/L (136-145)
[2017-02-19 08:07] LABS: ALKALINE PHOSPHATASE 83 U/L (45-117)
[2017-02-19] MEDS: METHYLPREDNISOLONE IV SCH ×2 (08:18→20:12)
[2017-02-19] MEDS: VALPROATE SOD IV 500 MG in DEXTROSE 5% 50ML 50 ML IV SCH ×4 (08:18→21:38)
[2017-02-19] MEDS: DEXTROSE 5% IV SCH ×2 (08:18→20:12)
[2017-02-19] MEDS: MAGNESIUM OXIDE 400 MG TAB PO SCH (08:19)
[2017-02-19] MEDS: CLONIDINE HCL 0.1 MG TAB PO SCH ×2 (08:19→20:11)
[2017-02-19] MEDS: VERAPAMIL HCL 120 MG TABCR PO SCH (08:20)
[2017-02-19] MEDS: PANTOprazole SOD 40 MG TAB PO SCH (08:20)
[2017-02-19] MEDS ORDERED: HYDROCODONE/ACETAMOPHEN 5/325MG TAB ONE (08:32)
[2017-02-19] MEDS ORDERED: NURSING VERBAL MED ORDER ONE ×2 (08:45→11:15)
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
[2017-02-19] MEDS: HYDROCODONE/ACETAMOPHEN 5/325MG TAB PO PRN ×3 (12:57→21:23)
[2017-02-19] MEDS: NICOTINE 21 MG/24 HR TDSY EXT SCH (13:13)
[2017-02-19 16:00] VITALS: O2SAT 94
[2017-02-19 16:19] VITALS: BP 168/84; PULSE 74; TEMP 36.8; O2SAT 94
[2017-02-19 20:09] VITALS: BP 155/81; PULSE 91; O2SAT 97
[2017-02-19 20:15] VITALS: BP 167/92; PULSE 82; TEMP 37; O2SAT 100
[2017-02-19] MEDS ORDERED: FAMOTIDINE 20 MG TAB PO SCH (21:00)
[2017-02-19] MEDS ORDERED: NORTRIPTYLINE HCL 10 MG CAP PO SCH (21:00)
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
[2017-02-19] MEDS ORDERED: NURSING DECISION MEDICATION ORDER SCH (23:00)
[2017-02-20] VITALS: O2SAT 94
[2017-02-20] MEDS: ONDANSETRON INJ 2 MG/ML 2 ML VIAL IV PRN ×2 (03:31→09:55)
[2017-02-20] MEDS: HYDROCODONE/ACETAMOPHEN 5/325MG TAB PO PRN (05:11)
[2017-02-20 06:41] VITALS: BP 183/95; PULSE 82; TEMP 37; O2SAT 100
[2017-02-20] MEDS: NSS + 20MEQ KCL 1000ML 1,000 ML IV SCH (06:41)
[2017-02-20] MEDS: VERAPAMIL HCL 120 MG TABCR PO SCH (07:45)
[2017-02-20] MEDS: NICOTINE 21 MG/24 HR TDSY EXT SCH (07:45)
[2017-02-20] MEDS: PANTOprazole SOD 40 MG TAB PO SCH (07:45)
[2017-02-20] MEDS: PROMETHAZINE HCL 25 MG TAB PO SCH ×2 (07:46→13:59)
[2017-02-20] MEDS: MAGNESIUM OXIDE 400 MG TAB PO SCH (07:46)
[2017-02-20] MEDS: CLONIDINE HCL 0.1 MG TAB PO SCH (07:46)
[2017-02-20 07:50] VITALS: BP 167/92; PULSE 89; TEMP 37.1; O2SAT 99
[2017-02-20] MEDS: DEXTROSE 5% IV SCH (07:57)
[2017-02-20] MEDS: METHYLPREDNISOLONE IV SCH (07:57)
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
[2017-02-20] MEDS ORDERED: ENOXAPARIN 40 MG/0.4 ML SYR SQ SCH (08:00)
[2017-02-20 08:04] LABS: BASO % 0.1 %; BASO ABS # 0.01 K/uL (0-0.2); COMPLETE YES; HEMATOCRIT 38.8 % (37-47); IG% 0.4 %; LYMPH % 6.8 %; LYMPH ABS # 1.13 K/uL (1.2-3.4); MEAN CELL VOLUME 93.9 fL (80-100); MEAN CORPUSCULAR HEMOGLOBIN 31.2 pg (25-34); MEAN CORPUSCULAR HGB CONC 33.2 g/dl (32-36); MEAN PLATELET VOLUME 9.4 fL (7.4-10.4); MONO % 1.8 %; NEUT % 90.9 %; PLATELET COUNT 274 K/uL (130-400); RED BLOOD COUNT 4.13 M/uL (4.2-5.4); WHITE BLOOD COUNT 16.63 K/uL (4.8-10.8)
[2017-02-20 08:11] LABS: INR 1.1 (0.9-1.1); PARTIAL THROMBOPLASTIN RATIO 0.9; PROTHROMBIN TIME (PATIENT) 11.3 SECONDS (9.0-12.0)
[2017-02-20 08:41] LABS: ALKALINE PHOSPHATASE 76 U/L (45-117); ALT/SGPT 14 U/L (12-78); AST/SGOT 12 U/L (15-37); BLOOD UREA NITROGEN 9 mg/dl (7-18); BUN/CREATININE RATIO 15.3 (10-20); CALCIUM 8.9 mg/dl (8.5-10.1); CARBON DIOXIDE 24 mmol/L (21-32); CHLORIDE 113 mmol/L (98-107); CREATININE 0.57 mg/dl (0.60-1.20); GLUCOSE 119 mg/dl (70-99); MAGNESIUM 2.4 mg/dl (1.8-2.4); POTASSIUM 4.1 mmol/L (3.5-5.1); SODIUM 145 mmol/L (136-145)
--- NOTE | 2017-02-20 08:53 | Neurology Progress Notes ---
Neurology Progress Note Date of Service Feb 20, 2017. Subjective Patient continues to have headaches sometimes as much as a "12 out of 10". Depakote IV is not helping. Solu-Medrol does not seem to be helping. GI has seen the patient is going to do a scope procedure. Nursing reports no new issues for seizures. Objective Date Time Temp Pulse Resp B/P Pulse Ox O2 Delivery O2 Flow Rate FiO2 02/20/17 07:50 37.1 89 16 167/92 99 Room Air 02/20/17 06:41 37.0 82 18 183/95 100 Room Air 02/20/17 00:00 94 Room Air 02/19/17 20:09 91 155/81 97 Room Air 02/19/17 16:19 36.8 74 18 168/84 94 Room Air 02/19/17 16:00 94 Room Air Last 24 Hours Test 02/20/17 07:35 White Blood Count 16.63 K/uL Red Blood Count 4.13 M/uL Hemoglobin 12.9 g/dL Hematocrit 38.8 % Mean Corpuscular Volume 93.9 fL Mean Corpuscular Hemoglobin 31.2 pg Mean Corpuscular Hemoglobin Concent 33.2 g/dl Platelet Count 274 K/uL Mean Platelet Volume 9.4 fL Neutrophils (%) (Auto) 90.9 % Lymphocytes (%) (Auto) 6.8 % Monocytes (%) (Auto) 1.8 % Eosinophils (%) (Auto) 0.0 % Basophils (%) (Auto) 0.1 % Neutrophils # (Auto) 15.13 K/uL Lymphocytes # (Auto) 1.13 K/uL Monocytes # (Auto) 0.30 K/uL Eosinophils # (Auto) 0.00 K/uL Basophils # (Auto) 0.01 K/uL RDW Standard Deviation 59.6 fL RDW Coefficient of Variation 17.3 % Immature Granulocyte % (Auto) 0.4 % Immature Granulocyte # (Auto) 0.06 K/uL Prothrombin Time 11.3 SECONDS Prothromb Time International Ratio 1.1 Activated Partial Thromboplast Time 23.1 SECONDS Partial Thromboplastin Ratio 0.9 Exam: Patient is awake and alert. Speech mentation is normal without aphasia or dysarthria. Mood and affect are normal and appropriate and thought processes are intact. She is fairly pleasant and cooperative. Extraocular muscles are intact without nystagmus. There is no facial droop. There are no abnormal involuntary movements. Strength is symmetrical in all limbs. Current Inpatient Medications Medications (Trade) Dose Ordered Sig/Yanet Route Start Time Stop Time Status Last Admin Dose Admin Acetaminophen (Tylenol Tab) 650 mg Q4H PRN PO 02/18/17 21:15 03/20/17 21:14 02/19/17 10:52 650 MG Zolpidem Tartrate (Ambien Tab) 5 mg HSZ PRN PO 02/18/17 21:15 03/20/17 21:14 Clonidine HCl (Catapres Tab) 0.1 mg BID PO 02/19/17 08:00 03/21/17 08:59 02/20/17 07:46 0.1 MG Magnesium Oxide (Mag-Ox Tab) 400 mg DAILY PO 02/19/17 08:00 03/21/17 08:59 02/20/17 07:46 400 MG Nortriptyline HCl (Pamelor Cap) 30 mg HS PO 02/19/17 21:00 03/21/17 20:59 02/19/17 21:24 30 MG Verapamil HCl (Calan-Sr Tab) 120 mg DAILY PO 02/19/17 08:00 03/21/17 08:59 02/20/17 07:45 120 MG Pantoprazole Sodium (Protonix Tab) 40 mg QAM PO 02/19/17 08:00 03/21/17 08:59 02/20/17 07:45 40 MG Ondansetron HCl 4 mg 4 mg Q6H PRN IV 02/18/17 21:30 03/20/17 21:29 02/20/17 03:31 4 MG Potassium Chloride/Sodium Chloride (Nss + 20meq KCl 1000ml) 1,000 ml @ 100 mls/hr Q10H IV 02/18/17 23:30 03/20/17 23:29 02/20/17 06:41 100 MLS/HR Famotidine 20 mg 20 mg HS PO 02/19/17 21:00 03/21/17 20:59 02/19/17 21:25 20 MG Valproate Sodium/ Dextrose (Depacon Iv/D5 50ml) 55 ml @ 55 mls/hr Q12H IV 02/19/17 09:00 03/21/17 08:59 02/19/17 21:38 55 MLS/HR Promethazine HCl 25 mg 25 mg TID PO 02/19/17 08:00 03/21/17 08:59 02/20/17 07:46 25 MG Methylprednisolone Sodium Succinate/ Dextrose (Solu-Medrol IV/ D5 100ml) 108 ml @ 108 mls/hr Q12H IV 02/19/17 08:00 03/21/17 07:59 02/20/17 07:57 108 MLS/HR Hydralazine HCl (HydrALAZINE INJ) 10 mg Q4H PRN IV. 02/19/17 00:00 03/21/17 00:00 Miscellaneous (Iv Fluids Completed) 1 ea PRN PRN N/A 02/19/17 01:00 02/19/18 00:59 Acetaminophen/ Hydrocodone Bitart ([place] 5/325 Tab) 1 TAB FOR PAIN 1-5 2 TABS ... Q4H PRN PO 02/19/17 09:15 03/05/17 09:14 02/20/17 05:11 2 TAB Enoxaparin Sodium (Lovenox Inj) 40 mg QAM SQ 02/20/17 08:00 03/22/17 07:59 02/20/17 07:47 40 MG Nicotine (Nicoderm Cq 21MG Patch) 1 patch QAM EXT 02/19/17 12:00 03/21/17 11:59 02/20/17 07:45 1 PATCH Miscellaneous (Remove Nicoderm Patch) 1 ea QPM N/A 02/19/17 21:00 03/21/17 20:59 Impression 1. Frequent, intractable, migraine headaches, refractory to most treatments. In addition she has a history of significant rebound headaches. Her neurologic examination is unremarkable and nonfocal with no meningeal signs or encephalopathy. MRI of the brain February 03 was unremarkable. I'm quite concerned that her headaches are being driven by excessive as needed medication. This creates the rebound headaches. She is not on any adequate doses of migraine preventative medications either. 2. Chronic neck pain This could create and drive headaches as well. 3. History of anxiety and depressive condition. 4. Hypertension Plan 1. The main elder to her headache control is to discontinue all as needed medications for now. I would avoid all narcotics in this patient. If she does not stop using the as needed medication, it does not matter which migraine preventative medicine will use - it will not work. 2. Discontinue IV Solu-Medrol and start an oral Medrol Dosepak tapering off over 6 days. The steroids act as a bridge to break the headache cycle while she is off the as needed medication and building up on the daily medication changes as listed below. 3. MRI of the cervical spine to evaluate for spinal stenosis and disc issues. 4. TSH, ESR, B-12, Lyme antibody titers 5. Consider lidocaine patch to the neck 6. Increase verapamil to 180 mg SR daily 7. Initiate Lamictal 25 mg twice a day. This can be increased as an outpatient by 25 mg twice a day each week until she reaches 100 mg twice a day This can act as a headache prophylactic medication as well as a mood stabilizer 8. Increase nortriptyline to 75 mg each evening.. 9. I've counseled the patient to discontinue cigarette smoking but she is not interested in changing her cigarette smoking habits at this time. 10. One time, 6 mg sumatriptan subcutaneous injection to see if this will break her headache. I've spoken to Dr. Palomo regarding this case. When it comes time for discharge, the patient will be followed by Dr. Azul as an outpatient.
[2017-02-20] MEDS ORDERED: SUMATRIPTAN SUCCINATE 6 MG/0.5 ML VIAL SQ ONE (09:30)
[2017-02-20] MEDS: VALPROATE SOD IV 500 MG in DEXTROSE 5% 50ML 50 ML IV SCH (09:50)
[2017-02-20] MEDS ORDERED: VRPSR180 PO (10:20)
[2017-02-20] MEDS ORDERED: NORT10CA4 PO (10:20)
[2017-02-20] MEDS ORDERED: LMC25 PO ×2 (10:20→14:24)
[2017-02-20] MEDS ORDERED: METH4TAB31 PO (10:20)
[2017-02-20] MEDS ORDERED: NCDT21 EXT (10:20)
--- NOTE | 2017-02-20 10:21 | Discharge Instructions ---
Discharge Instructions Date of Service Feb 20, 2017. Admission Reason for Admission: Epigastric Abdominal Pain, Intractable Migraine Discharge Discharge Diagnosis / Problem: migraine Discharge Goals Goal(s): Decrease discomfort, Improve function, Increase independence, Improve disease control, Improve nutritional status, Learn about illness, Diagnostic testing, Therapeutic intervention, Prevent Disease Progression, Specific goals Activity Recommendations Activity Limitations: resume your previous activity . Instructions / Follow-Up Instructions / Follow-Up you have intractable migraine headaches, labs includes lyme disease sent, you need to follow up with your neurologist you have Chronic neck pain, C spine MRI done, you need to follow up with your neuro for the results you have GERD/gastric ulcer history with nausea and vomiting/weight loss/ hypokalemia, EGD done today, you need to follow up with [facility] D[facility] Teacher as instructed - you need to follow up with your primary care physician in 1 week, - take medication as instructed, never overdose or any misuse, or take with alcohol, because misuse of medicine may cause organ damage or , call your primary care physician if have questions of medicaitons. - call your primary care physician OR go to local emergency room if has any fever/chill, chest pain, shortness of breathing, nausea/vomiting/abdominal pain , facial droop/slurry speech/local weakness, or if has any questions. - fall precaution - diet as instructed - you need to follow up with your subspecialist as instructed, such as GI and neuro - you should understand that it is important to follow up the above instruction , and "not following the above instruction" may cause delayed or missed care of your medical conditions which may cause permanent organ damage and even . Current Hospital Diet Patient's current hospital diet: Regular Diet Discharge Diet Recommended Diet: AHA Diet (Heart Healthy) (or as instructed per gi) Pending Studies Studies pending at discharge: no Laboratory Results Meds Administered (Past 24Hrs) Medications (Trade) Dose Ordered Sig/Yanet Route Start Time Stop Time Status Last Admin Dose Admin Sodium Chloride 1,000 ml @ 999 mls/hr Q1H1M STAT IV 02/18/17 19:34 02/18/17 20:34 DC 02/18/17 20:12 999 MLS/HR Valproate Sodium/ Dextrose (Depacon Iv/D5 50ml) 55 ml @ 55 mls/hr NOW STAT IV 02/18/17 19:34 02/18/17 20:33 DC 02/18/17 20:14 55 MLS/HR Methylprednisolone Sodium Succinate (Solu-Medrol IV) 500 mg NOW STAT IV 02/18/17 19:34 02/18/17 19:38 DC 02/18/17 20:16 500 MG Promethazine HCl (Phenergan Inj) 25 mg NOW STAT IM 02/18/17 19:34 02/18/17 19:38 DC 02/18/17 20:13 25 MG Acetaminophen (Tylenol Tab) 650 mg Q4H PRN PO 02/18/17 21:15 03/20/17 21:14 02/19/17 10:52 650 MG Clonidine HCl (Catapres Tab) 0.1 mg BID PO 02/19/17 08:00 03/21/17 08:59 02/20/17 07:46 0.1 MG Magnesium Oxide (Mag-Ox Tab) 400 mg DAILY PO 02/19/17 08:00 03/21/17 08:59 02/20/17 07:46 400 MG Nortriptyline HCl (Pamelor Cap) 30 mg HS PO 02/19/17 21:00 02/20/17 10:16 DC 02/19/17 21:24 30 MG Verapamil HCl (Calan-Sr Tab) 120 mg DAILY PO 02/19/17 08:00 02/20/17 08:57 DC 02/20/17 07:45 120 MG Pantoprazole Sodium (Protonix Tab) 40 mg QAM PO 02/19/17 08:00 03/21/17 08:59 02/20/17 07:45 40 MG Ondansetron HCl 4 mg 4 mg Q6H PRN IV 02/18/17 21:30 03/20/17 21:29 02/20/17 09:55 4 MG Potassium Chloride/Sodium Chloride (Nss + 20meq KCl 1000ml) 1,000 ml @ 100 mls/hr Q10H IV 02/18/17 23:30 03/20/17 23:29 02/20/17 06:41 100 MLS/HR Famotidine 20 mg 20 mg HS PO 02/19/17 21:00 03/21/17 20:59 02/19/17 21:25 20 MG Valproate Sodium/ Dextrose (Depacon Iv/D5 50ml) 55 ml @ 55 mls/hr Q12H IV 02/19/17 09:00 03/21/17 08:59 02/20/17 09:50 55 MLS/HR Promethazine HCl 25 mg 25 mg TID PO 02/19/17 08:00 03/21/17 08:59 02/20/17 07:46 25 MG Methylprednisolone Sodium Succinate/ Dextrose (Solu-Medrol IV/ D5 100ml) 108 ml @ 108 mls/hr Q12H IV 02/19/17 08:00 03/21/17 07:59 02/20/17 07:57 108 MLS/HR Ketorolac Tromethamine (Toradol Inj) 30 mg NOW STAT IV 02/19/17 00:50 02/19/17 00:51 DC 02/19/17 01:05 30 MG Acetaminophen/ Butalbital/ Caffeine (Fioricet Tab) 1 tab Q4H PRN PO 02/19/17 03:15 02/19/17 04:22 DC 02/19/17 05:02 1 TAB Acetaminophen/ Hydrocodone Bitart ([place] 5/325 Tab) 2 tab STK-MED ONCE .ROUTE 02/19/17 08:32 02/19/17 08:33 DC 02/19/17 08:39 2 TAB Acetaminophen/ Hydrocodone Bitart ([place] 5/325 Tab) 1 TAB FOR PAIN 1-5 2 TABS ... Q4H PRN PO 02/19/17 09:15 03/05/17 09:14 02/20/17 05:11 2 TAB Enoxaparin Sodium (Lovenox Inj) 40 mg QAM SQ 02/20/17 08:00 03/22/17 07:59 02/20/17 07:47 40 MG Nicotine (Nicoderm Cq 21MG Patch) 1 patch QAM EXT 02/19/17 12:00 03/21/17 11:59 02/20/17 07:45 1 PATCH Sumatriptan Succinate (Imitrex Sq Inj) 6 mg NOW ONCE SQ 02/20/17 09:30 02/20/17 09:31 DC 02/20/17 09:51 6 MG Lamotrigine (Lamictal Tab) 25 mg BID PO 02/20/17 20:00 03/22/17 19:59 02/20/17 09:49 25 MG Medical Emergencies . Who to Call and When: Medical Emergencies: If at any time you feel your situation is an emergency, please call 911 immediately. . Non-Emergent Contact Non-Emergency issues call your: Primary Care Provider, Skin Diving Teacher, Neurologist . . "Provider Documentation" section prepared by Rosalio Palomo. VTE Core Measure Inpt VTE Proph given/why not?: Enoxaparin (Lovenox)SQ (declined), SCD's
[2017-02-20] MEDS ORDERED: GADAVIST IV PRN (11:45)
--- NOTE | 2017-02-20 12:02 | DIAGNOSTIC IMAGING REPORT ---
MRI CERVICAL SPINE COMBO CLINICAL HISTORY: Spinal stenosis. Intractable headache. TECHNIQUE: Sagittal and axial T1, T2 and STIR images were obtained. Imaging was performed before and after the administration of 4.5 cc of intravenous Gadavist COMPARISON STUDY: Conventional radiographic study dated 03/04/2016, outside MRI the cervical spine dated 05/23/2009 There are no suspicious areas of marrow replacement. No intrinsic cervical cord lesions are visualized. C2-3: There is no evidence of disc bulge or focal herniation. There is no spinal or foraminal stenosis. C3-4: There is no evidence of disc bulge or focal herniation. There is no spinal or foraminal stenosis. C4-5: There are no disc bulges or focal herniations. There is no spinal or foraminal stenosis. C5-6 :There is a small broad-based disc protrusion.. There is minor spinal canal narrowing. There is minor bilateral foraminal narrowing. C6-7: There is no evidence of disc bulge or focal herniation. There is no evidence of spinal or foraminal stenosis. C7-T1: There is no evidence of disc bulge or focal herniation. There is no evidence of spinal or foraminal stenosis. Postcontrast images reveal no pathologically enhancing lesions. IMPRESSION: 1. Interval decrease in the size of the small broad-based disc protrusion at the C5-6 level. There is minor associated spinal canal narrowing. There is mild bilateral foraminal narrowing. 2. The remainder cervical levels are unremarkable. 3. No intrinsic cord lesions are visualized. Electronically signed by: Otto Ortiz M.D. 02/20/2017 12:00 PM Dictated Date/Time: 02/20/2017 11:54 AM
--- NOTE | 2017-02-20 12:38 | History & Physical Bridge Note ---
H&P Re-Evaluation Bridge Note: I have examined the patient, reviewed the History & Physical and in the interval since the performance of the History & Physical I have noted the following changes of clinical significance: No changes noted
[2017-02-20 13:25] LABS: LYME DISEASE AB IGG NEG (NEG)
[2017-02-20 13:28] LABS: LYME DISEASE AB IGM NEG (NEG)
[2017-02-20 13:39] VITALS: BP 146/84; PULSE 83; TEMP 37.1; O2SAT 100
[2017-02-20] MEDS ORDERED: NORT25CA PO (14:24)
--- NOTE | 2017-02-20 14:25 | GI REPORT ---
Procedure Date: 02/20/2017 12:39 PM THIS REPORT HAS BEEN AMENDED Addendum Number: 1 Addendum Date: 02/20/2017 12:56:00 PM Biopsies taken of esophagus at 25 cm to exclude candidiasis Procedure: Upper GI endoscopy Indications: Acute gastric ulcer, Follow-up of acute gastric ulcer, Nausea with vomiting, Weight loss Medicines: Propofol per Anesthesia Complications: No immediate complications. Estimated blood loss: Minimal. Estimated Blood Loss: Estimated blood loss was minimal. Estimated blood loss was minimal. Procedure: Pre-Anesthesia Assessment: - Prior to the procedure, a History and Physical was performed, and patient medications and allergies were reviewed. The patient's tolerance of previous anesthesia was also reviewed. The risks and benefits of the procedure and the sedation options and risks were discussed with the patient. All questions were answered, and informed consent was obtained. Prior Anticoagulants: The patient has taken no previous anticoagulant or antiplatelet agents. ASA Grade Assessment: III - A patient with severe systemic disease. After reviewing the risks and benefits, the patient was deemed in satisfactory condition to undergo the procedure. After obtaining informed consent, the endoscope was passed under direct vision. Throughout the procedure, the patient's blood pressure, pulse, and oxygen saturations were monitored continuously. The scope was introduced through the mouth, and advanced to the second part of duodenum. The upper GI endoscopy was accomplished without difficulty. The patient tolerated the procedure well. Findings: Patchy candidiasis was found in the entire esophagus. Biopsies were taken with a cold forceps for histology. Estimated blood loss was minimal. Verification of patient identification for the specimen was done by the physician and bacteriology technician using the patient's name and medical record number. Patchy mild inflammation characterized by erythema was found in the gastric body and in the gastric antrum. Biopsies were taken with a cold forceps for Helicobacter pylori testing. Verification of patient identification for the specimen was done by the physician and bacteriology technician using the patient's name and medical record number. The examined duodenum was normal. Biopsies for histology were taken with a cold forceps for evaluation of celiac disease. Estimated blood loss was minimal. Verification of patient identification for the specimen was done by the physician and bacteriology technician using the patient's name and medical record number. Retained gastric contents are not identified on this exam. The cardia and gastric fundus were normal on retroflexion. The Z-line was regular and was found 40 cm from the incisors. Abnormal motility was noted at the lower esophageal sphincter. The distal esophagus/lower esophageal sphincter is patulous. Impression: - Monilial esophagitis. Biopsied. - Gastritis. Biopsied. - Normal examined duodenum. Biopsied. Recommendation: - Return patient to [facility] for [facility] care. - Advance diet as tolerated. - Await pathology results. - Return to GI clinic as previously scheduled. MD Ron Khoury MD 02/20/2017 12:54:42 PM This report has been signed electronically. Note Initiated On: 02/20/2017 12:39 PM I attest to the content of the Intraoperative Record and orders documented therein, exceptions below MD Ron Khoury MD 02/20/2017 12:56:33 PM This report has been signed electronically.
--- NOTE | 2017-02-20 14:31 | Anesthesiology Progress Note ---
Anesthesia Post Op Note Date & Time Feb 20, 2017 at 14:30 Vital Signs Pain Intensity: 8.0 Vital Signs Past 12 Hours Date Time Temp Pulse Resp B/P Pulse Ox O2 Delivery O2 Flow Rate FiO2 02/20/17 13:39 37.1 83 20 100 Room Air 02/20/17 13:10 83 20 146/84 100 Room Air 02/20/17 12:56 71 20 139/68 100 Room Air 02/20/17 12:12 37.1 77 20 156/77 100 Room Air 02/20/17 12:11 37.1 77 20 156/77 100 Room Air 02/20/17 08:00 Room Air 02/20/17 07:50 37.1 89 16 167/92 99 Room Air 02/20/17 06:41 37.0 82 18 183/95 100 Room Air Notes Mental Status: alert / awake / arousable, participated in evaluation Pt Amnestic to Procedure: Yes Nausea / Vomiting: adequately controlled Pain: adequately controlled Airway Patency, RR, SpO2: stable & adequate BP & HR: stable & adequate Hydration State: stable & adequate Anesthetic Complications: no major complications apparent
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
[2017-02-20] MEDS ORDERED: NORTRIPTYLINE HCL 25 MG CAP PO SCH (22:00)
[2017-02-21] MEDS ORDERED: VERAPAMIL HCL 180 MG TABCR PO SCH (08:00)
[2017-03-11] MEDS ORDERED: POTASSIUM (11:04)
[2017-03-11] MEDS ORDERED: LAMO25TA PO (11:04)
[2017-03-11] MEDS ORDERED: NORT50CA PO (11:06)
[2017-03-19] MEDS ORDERED: RXC5 PO (10:25)
[2017-03-19] MEDS ORDERED: ATV5 PO (10:25)
[2017-04-22] MEDS ORDERED: PROC1TAB5 PO (11:04)
[2017-04-22] MEDS ORDERED: CLR10 PO (11:04)
[2017-04-22] MEDS ORDERED: VRPSR180 PO (11:04)
[2017-04-22] MEDS ORDERED: OMEP40CA41 PO (11:41)
[2017-07-11] MEDS ORDERED: PRED20TA PO (14:36)
[2017-07-11] MEDS ORDERED: NRT/25 PO (14:36)
== END 2017-02-20 14:34 | disposition home or self-care (01) ==
LOC: ENRESERVDT → ENRESERVTM → C.EDB 17:24 → C.MS4W 21:13
PROVIDERS: ADMIT Hospitalist; ATTEND Hospitalist
DX: G43.919 Migraine, unspecified, intractable, without status migrainosus (principal); R11.2 Nausea with vomiting, unspecified; E87.6 Hypokalemia; K29.50 Unspecified chronic gastritis without bleeding; B37.81 Candidal esophagitis; K21.9 Gastro-esophageal reflux disease without esophagitis; F17.210 Nicotine dependence, cigarettes, uncomplicated; I10 Essential (primary) hypertension; R63.4 Abnormal weight loss; Z90.710 Acquired absence of both cervix and uterus; Z87.11 Personal history of peptic ulcer disease; Z82.49 Family history of ischemic heart disease and other diseases of the circulatory system

== ENCOUNTER 2017-03-18 05:38 | Observation (INO) | payer BC ==
[2017-03-11 11:06] VITALS: BMI 17.0
--- NOTE | 2017-03-11 11:35 | PAT Medication Instructions ---
Service Date Mar 11, 2017. Current Home Medication List Xewreww-Ccabsldggqibj-Yfppmjsn (Excedrin Migraine), 1 TAB PO UD PRN for Migraine Clonidine Hcl (Catapres), 0.1 MG PO TID Lamotrigine (Lamictal), 25 MG PO BID Loratadine (Claritin), 10 MG PO QAM Magnesium Oxide (Mag-Ox), 400 MG PO QAM Nicotine (Nicotine), 1 PATCH EXT QAM Nortriptyline (Pamelor), 50 MG PO HS Omeprazole (Prilosec), 40 MG PO QAM Ondansetron (Ondansetron HCl), 4 MG PO Q8 PRN for Nausea Prochlorperazine Maleate (Compazine), 1 TAB PO Q6 PRN for NAUSEA Verapamil HCl (Verapamil HCl ER), 1 TAB PO QAM [Potassium], Unknown Dose Medication Instructions For Your Scheduled Surgery - Hold the following medications per surgeon's instructions: Xxhnsau-Intnbddwkbtqn-Gercvsqz (Excedrin Migraine), 1 TAB PO UD PRN for Migraine (6 per day usually) - Hold the following medications the morning of surgery: [Potassium], Unknown Dose Loratadine (Claritin), 10 MG PO QAM Magnesium Oxide (Mag-Ox), 400 MG PO QAM - Take the following medications the morning of surgery with a sip of water OTHERWISE NOTHING TO EAT OR DRINK AFTER MIDNIGHT: Clonidine Hcl (Catapres), 0.1 MG PO TID Lamotrigine (Lamictal), 25 MG PO BID Omeprazole (Prilosec), 40 MG PO QAM Verapamil HCl (Verapamil HCl ER), 1 TAB PO QAM Prochlorperazine Maleate (Compazine), 1 TAB PO Q6 PRN for NAUSEA Ondansetron (Ondansetron HCl), 4 MG PO Q8 PRN for Nausea - Take the following medications as scheduled the night before surgery: Clonidine Hcl (Catapres), 0.1 MG PO TID Lamotrigine (Lamictal), 25 MG PO BID Nortriptyline (Pamelor), 50 MG PO HS Prochlorperazine Maleate (Compazine), 1 TAB PO Q6 PRN for NAUSEA Ondansetron (Ondansetron HCl), 4 MG PO Q8 PRN for Nausea If you have any questions please call us at [phone] or [phone] or [phone]
--- NOTE | 2017-03-11 12:25 | DIAGNOSTIC IMAGING REPORT ---
CHEST PREADMISSION(PA/LAT) CLINICAL HISTORY: Preoperative chest COMPARISON STUDY: 08/28/2016 FINDINGS: The cardiac and mediastinal contours remain stable. There is no focal pulmonary consolidation. There is no failure. There are no pleural effusions. There is a 9 mm rounded opacity at the left apex. This likely represent a clothing artifact.[ IMPRESSION: 9 mm opacity at the left apex. While nonspecific this likely represents a clothing artifact. Electronically signed by: Otto Ortiz M.D. 03/11/2017 12:23 PM Dictated Date/Time: 03/11/2017 12:21 PM
--- NOTE | 2017-03-11 12:27 | DIAGNOSTIC IMAGING REPORT ---
CERVICAL SPINE SERIES WITH FLEXION AND EXTENSION VIEWS. CLINICAL HISTORY: Preoperative examination. Cervical spinal stenosis. COMPARISON STUDY: 03/04/2016 FINDINGS: The prevertebral soft tissues are normal. No fractures or subluxations are visualized. There are degenerative changes most pronounced at C5-6 level. There is no evidence of instability on flexion or extension. IMPRESSION: Degenerative changes the C5-6 level. No evidence of instability on flexion or extension. Electronically signed by: Otto Ortiz M.D. 03/11/2017 12:24 PM Dictated Date/Time: 03/11/2017 12:23 PM
[2017-03-11 12:40] LABS: URINE APPEARANCE CLEAR (CLEAR); URINE COLOR DK YELLOW; URINE NITRITE NEG (NEG); URINE SPECIFIC GRAVITY 1.037 (1.000-1.030); UROBILINOGEN NEG (NEG)
[2017-03-11 13:03] LABS: BASO % 0.3 %; BASO ABS # 0.03 K/uL (0-0.2); COMPLETE YES; EOS % 0.3 %; HEMATOCRIT 41.5 % (37-47); IG% 0.2 %; LYMPH % 32.3 %; LYMPH ABS # 2.87 K/uL (1.2-3.4); MEAN CELL VOLUME 98.6 fL (80-100); MEAN CORPUSCULAR HEMOGLOBIN 31.8 pg (25-34); MEAN CORPUSCULAR HGB CONC 32.3 g/dl (32-36); MEAN PLATELET VOLUME 8.9 fL (7.4-10.4); MONO % 4.5 %; NEUT % 62.4 %; PLATELET COUNT 357 K/uL (130-400); RED BLOOD COUNT 4.21 M/uL (4.2-5.4); WHITE BLOOD COUNT 8.88 K/uL (4.8-10.8)
[2017-03-11 13:03] LABS: MANUAL MICROSCOPIC REQUIRED? NO; REVIEW REQ? NO; URINE BILIRUBIN NEG (NEG)
[2017-03-11 13:15] LABS: CALCIUM 8.6 mg/dl (8.5-10.1); CREATININE 0.8 mg/dl (0.60-1.20); POTASSIUM 3.9 mmol/L (3.5-5.1)
[~2017-03-18] VITALS: Ht 165.1 cm; Wt 47.4 kg
[2017-03-18] VITALS (18 sets, daily range): BP systolic 126–167; BP diastolic 74–85; PULSE 76–110; TEMP 36.3–37.3; O2SAT 97–100; Ht 165.1 cm; Wt 47.4 kg
[~2017-03-18 05:38] MED LIST changes: -ACET-749 PO; +LAMO25TA PO; -NARA1TAB14 PO; +NCDT21 EXT; -NORT10CA PO; +NORT50CA PO; +POTASSIUM; -VERA120T65 PO
[2017-03-18] MEDS ORDERED: LACTATED RINGER'S 1000ML 1,000 ML IV SCH (06:00)
[2017-03-18] MEDS ORDERED: CeleBREX 200 MG CAP PO SCH (06:00)
[2017-03-18] MEDS ORDERED: CLINDAMYCIN 600 MG/54 ML D5W IV SCH (06:00)
[2017-03-18] MEDS ORDERED: PREGABALIN 75 MG CAP PO SCH (06:00)
[2017-03-18] MEDS ORDERED: MIDAZOLAM HCL 1 MG/ML 2ML VIAL ONE (06:49)
[2017-03-18] MEDS ORDERED: FENTANYL CITRATE INJ 50 MCG/1 ML 2 ML VIAL ONE ×3 (06:49→08:55)
[2017-03-18] MEDS ORDERED: THROMBIN 5000 UNITS KIT ONE (07:02)
[2017-03-18] MEDS ORDERED: BACITRACIN 50000 UNIT VIAL ONE (07:02)
[2017-03-18] MEDS ORDERED: ATROPINE SULFATE 0.1 MG/ML 5ML SYR IV PRN (07:30)
[2017-03-18] MEDS ORDERED: FENTANYL CITRATE INJ 50 MCG/1 ML 2 ML VIAL IV PRN (07:30)
[2017-03-18] MEDS ORDERED: EpHEDrine SULFATE INJ 50 MG/ML AMP IV PRN (07:30)
[2017-03-18] MEDS ORDERED: HYDROmorphone INJ 0.5 MG/0.5 ML SYR IV PRN (07:30)
[2017-03-18] MEDS ORDERED: ONDANSETRON INJ 2 MG/ML 2 ML VIAL IV PRN ×2 (07:30→09:00)
--- NOTE | 2017-03-18 07:39 | HISTORY & PHYSICAL EXAMINATION ---
DATE OF ADMISSION: 03/18/2017 CHIEF COMPLAINT: Neck pain, chronic headaches with radiation into the shoulders. HISTORY OF PRESENT ILLNESS: The patient has a longstanding history of symptoms as above. She underwent an uneventful elective lumbar fusion last fall by myself. She was pleased with the results. Preoperative to that, she was seen by cardiology and cleared for ST and T-wave abnormalities. At that time, she had a negative dobutamine stress echo, this was performed in 08/2016. She now presents with complaints of cervical disease that has been present for years and failed to respond to physical therapy and epidural injections. Recent MRI shows stable disc herniation C5-C6 with slight indentation of the cord. There is no myelomalacia. She denies radicular symptoms below the level of the shoulders and denies any myelopathic symptoms. PAST MEDICAL HISTORY: Lumbar degenerative disc disease, chronic migraines, GERD, history of hysterectomy, nicotine dependence, history of gastric ulcer, chronic headaches. She also has COPD. ALLERGIES: BACTRIM, BIAXIN, PENICILLIN, CHANTIX, CIPROFLOXIN, DICLOFENAC, ULTRAM. PAST SURGICAL HISTORY: Lumbar spine fusion. MEDICATIONS: Prilosec, magnesium, Catapres, verapamil, nortriptyline, Zofran, Compazine, lamotrigine and Imitrex. SOCIAL HISTORY: The patient is . She continues to smoke. She does not use alcohol. REVIEW OF SYSTEMS: Negative for chest pain, shortness of breath, dyspnea on exertion, incontinence, numbness or tingling in the upper extremities, history of malignancy. PHYSICAL EXAMINATION: The patient stands 5 feet 5 inches tall, weighs 165 pounds with BMI of 17. On exam, her affect is normal. She answers questions appropriately. She is oriented x3, stands easily, ambulates with a normal gait. She has no ataxia. She has full cervical range of motion with negative Spurling's. She has a negative Lhermitte's. She has 5/5 strength on manual motor testing of both upper extremities in all motor groups. Intact sensation to light touch in all distributions and symmetric normal DTRs in the upper extremities. She has palpable radial pulses. She has a regular rate and rhythm. Lungs are clear to auscultation bilaterally. She has normal appearing skin. No adenopathy in the neck. Trachea is midline. Her MRI is reviewed as above. She has central disc herniation C5-C6 which abuts spinal cord caused some slight effacement. ASSESSMENT: C5-C6 disc degeneration and cervical disc herniation. PLAN: The patient is scheduled for a C5-C6 anterior cervical discectomy and fusion. Risks reviewed. She would like to proceed. Questions were answered. CULLEN
[2017-03-18] MEDS ORDERED: HYDROmorphone INJ 2 MG/ML SYR/VIAL ONE (08:14)
[2017-03-18] MEDS ORDERED: PROPOFOL IV EMULSION 10 MG/ML 20 ML VIAL IV ONE (08:31)
[2017-03-18] MEDS ORDERED: ONDANSETRON INJ 2 MG/ML 2 ML VIAL ONE (08:31)
[2017-03-18] MEDS ORDERED: ROCURONIUM BROMIDE 10 MG/ML 5 ML VIAL ONE (08:31)
[2017-03-18] MEDS ORDERED: EpHEDrine SULFATE 50MG/5ML SYR ONE (08:31)
[2017-03-18] MEDS ORDERED: DEXAMETHASONE SOD INJ 4 MG/ML VIAL ONE (08:31)
[2017-03-18] MEDS ORDERED: NEOSTIGMINE METHYLSULFATE 1 MG/ML 10ML VIAL ONE (08:31)
[2017-03-18] MEDS ORDERED: GLYCOPYRROLATE INJ 0.2 MG/ML VIAL ONE (08:31)
[2017-03-18] MEDS ORDERED: PHENYLEPHRINE 100MCG/ML 5ML SYR ONE (08:31)
[2017-03-18] MEDS ORDERED: LIDOCAINE HCL 2% 2 ML VIAL (20MG/ML) ONE (08:31)
[2017-03-18] MEDS ORDERED: FLOSEAL HEMOSTATIC MATRIX 5ML TOP ONE (08:51)
--- NOTE | 2017-03-18 08:54 | [facility] Post Operative Brief Note ---
Immediate Operative Summary Operative Date Mar 18, 2017. Pre-Operative Diagnosis C5-C6 disc degeneration and cervical disc herniation Post-Operative Diagnosis same as pre-operative Procedure(s) Performed C5-C6 Anterior Cervical Discectomy and Fusion Surgeon Dr. Indra Dunne Glue Spreader Surgeon(s) Ron Jean PA-C Estimated Blood Loss 5ml Findings dict Specimens none per surgeon
[2017-03-18] MEDS ORDERED: LORAZEPAM INJ 0.5 MG in SYRINGE 0.75 ML IV PRN (09:00)
[2017-03-18] MEDS ORDERED: PROCHLORPERAZINE MALEATE 10 MG TAB PO PRN (09:00)
[2017-03-18] MEDS ORDERED: ONDANSETRON 4 MG TAB PO PRN (09:00)
[2017-03-18] MEDS ORDERED: LORAZEPAM 0.5 MG TAB PO PRN (09:00)
[2017-03-18] MEDS ORDERED: NALOXONE HCL 0.4 MG/1 ML VIAL/CARP IV PRN (09:00)
[2017-03-18] MEDS ORDERED: DEXAMETHASONE INJ 8 MG in SYRINGE 0 ML IV PRN (09:00)
[2017-03-18] MEDS ORDERED: ACETAMINOPHEN IV 650 MG in EMPTY BAG 0 ML IV PRN (09:00)
[2017-03-18] MEDS ORDERED: RACEPINEPHRINE 2.25% NEBU SOLN 0.5 ML VIAL INH PRN (09:00)
--- NOTE | 2017-03-18 09:43 | OPERATIVE REPORT ---
DATE OF OPERATION: 03/18/2017 PREOPERATIVE DIAGNOSES: 1. C5-C6 herniated nucleus pulposus. 2. C5-C6 disc degeneration. POSTOPERATIVE DIAGNOSIS: Same. PROCEDURES: 1. Anterior cervical discectomy and fusion and application of PEEK intervertebral spacer with local autograft and DBM putty C5-C6. 2. Anterior cervical instrumentation C5-C6 with LDR anterior cervical blade plates. SURGEON: Dr. Dunne. CARBON PAPER MACHINE OPERATOR: Ron Jean PA-C. Please note he assisted in all portions of the procedure and was critical for performance of procedure, participated in positioning, prepping, draping, retraction and wound closure. ANESTHESIA: General endotracheal anesthesia. COMPLICATIONS: None. ESTIMATED BLOOD LOSS: Minimal. PROCEDURE: After identification of patient and operative level, she was brought to the OR where she underwent induction of general anesthesia. She was then positioned supine on [facility] OR table with Elijah horseshoe head waiter/waitress. The arms were tucked at sides and well padded. The anterior neck was sterilely prepped and draped in usual fashion. Antibiotics were administered. Time-out was performed. Level was confirmed and transverse skin incision was made at the level of disc on the right side of the neck. I divided the platysma in line with the incision and performed routine anterior cervical exposure with blunt dissection. I identified the presumptive disc space, marked it with fluoroscopy and electrocautery and then mobilized the longus colli over C5 and C6 disc space. I then placed self-retaining cervical retractor and placed Hubbell pins in the body of C5 and C6. I then did a complete discectomy at C5-C6 and took down the posterior osteophytes with a delmy, removed the posterior annulus and the PLL and did foraminotomies as necessary. I palpated the nerve roots decompressed. I then decorticated the endplates at C5-C6 with a high speed delmy, determined graft size with trial sizers. I then filled the PEEK cage with local bone and DBM putty tamped into position, released Hubbell distraction, applied bone wax over the holes and inserted the LDR blades plates through the insertion handle. I had good fixation were fully deployed. I then irrigated, confirmed hemostasis, applied FloSeal as necessary and closed over a small round drain in layered fashion. All sponge and needle counts were correct at the end of the case. I attest to the content of the Intraoperative Record and any orders documented therein. Any exceptio ns are noted below.
--- NOTE | 2017-03-18 10:11 | Anesthesiology Progress Note ---
Anesthesia Post Op Note Date & Time Mar 18, 2017 at 10:10 Vital Signs Pain Intensity: 5 Vital Signs Past 12 Hours Date Time Temp Pulse Resp B/P Pulse Ox O2 Delivery O2 Flow Rate FiO2 03/18/17 10:00 36.1 77 17 133/79 100 Nasal Cannula 4 03/18/17 09:50 77 17 126/71 100 Nasal Cannula 4 03/18/17 09:40 87 17 129/72 100 Nasal Cannula 4 03/18/17 09:30 82 12 123/68 100 Nasal Cannula 4 03/18/17 09:20 87 14 120/71 98 Mask 10 03/18/17 09:10 67 12 86/48 98 Mask 10 03/18/17 09:03 36.2 64 14 81/35 98 Mask 10 03/18/17 06:31 36.9 81 20 149/85 99 Room Air Notes Mental Status: alert / awake / arousable, participated in evaluation Pt Amnestic to Procedure: Yes Nausea / Vomiting: adequately controlled Pain: adequately controlled Airway Patency, RR, SpO2: stable & adequate BP & HR: stable & adequate Hydration State: stable & adequate Anesthetic Complications: no major complications apparent Tolerated ice chips well. Denied sore throat, voice changes or problems swallowing.
[2017-03-18] MEDS ORDERED: IV FLUIDS COMPLETED PRN (10:45)
[2017-03-18] MEDS: SODIUM CHLORIDE 0.9% 1000ML 1,000 ML IV SCH ×2 (11:22→23:33)
[2017-03-18] MEDS ORDERED: OXYCODONE HCL IR 5 MG TAB (IMMEDIATE RELEASE) ONE (11:25)
[2017-03-18] MEDS: NICOTINE 21 MG/24 HR TDSY TD SCH (11:32)
[2017-03-18] MEDS ORDERED: HYDROmorphone INJ 1 MG/ML SYR IV PRN (11:45)
--- NOTE | 2017-03-18 11:57 | DIAGNOSTIC IMAGING REPORT ---
Cervical SPINE, INTRAOPERATIVE FLUOROSCOPY HISTORY: C5-C6 ACDF.. FLUOROSCOPY TIME: 10 seconds. FINDINGS: Intraoperative fluoroscopy was provided for the cervical spine. 2 fluoroscopic spot images were obtained. ACDF C5-C6. The hardware appears intact. IMPRESSION: Fluoroscopy provided for a C5-C6 ACDF. Electronically signed by: Steve Jones M.D. 03/18/2017 11:54 AM Dictated Date/Time: 03/18/2017 11:54 AM
[2017-03-18] MEDS: VERAPAMIL HCL 180 MG TABCR PO SCH (12:01)
[2017-03-18] MEDS: PANTOprazole SOD 40 MG TAB PO SCH (12:02)
[2017-03-18] MEDS: LORATADINE 10 MG TAB PO SCH (12:03)
[2017-03-18] MEDS: MAGNESIUM OXIDE 400 MG TAB PO SCH (12:04)
[2017-03-18] MEDS: HYDROmorphone INJ 0.5 MG/0.5 ML SYR IV PRN ×2 (13:46→19:43)
[2017-03-18] MEDS: CLONIDINE HCL 0.1 MG TAB PO SCH ×2 (13:47→20:54)
[2017-03-18] MEDS: CLINDAMYCIN IV 600 MG in DEXTROSE 5% ADD-VANTAGE 50ML 50 ML IV SCH ×2 (15:21→23:33)
[2017-03-18] MEDS: DEXAMETHASONE INJ 6 MG in SYRINGE 0 ML IV SCH ×2 (15:22→23:33)
[2017-03-18] MEDS: OXYCODONE HCL IR 5 MG TAB (IMMEDIATE RELEASE) PO PRN ×2 (17:01→23:32)
[2017-03-18] MEDS ORDERED: NORTRIPTYLINE HCL 25 MG CAP PO SCH (21:00)
[2017-03-19] VITALS (8 sets, daily range): BP systolic 121–161; BP diastolic 71–80; PULSE 86–100; TEMP 36.8–37.2; O2SAT 97–100
[2017-03-19] MEDS: OXYCODONE HCL IR 5 MG TAB (IMMEDIATE RELEASE) PO PRN ×2 (03:51→10:26)
[2017-03-19] MEDS: HYDROmorphone INJ 0.5 MG/0.5 ML SYR IV PRN (07:05)
[2017-03-19] MEDS: NICOTINE 21 MG/24 HR TDSY TD SCH (08:39)
[2017-03-19] MEDS: DEXAMETHASONE INJ 6 MG in SYRINGE 0 ML IV SCH (08:39)
[2017-03-19] MEDS: CLINDAMYCIN IV 600 MG in DEXTROSE 5% ADD-VANTAGE 50ML 50 ML IV SCH (08:39)
[2017-03-19] MEDS: PANTOprazole SOD 40 MG TAB PO SCH (08:40)
[2017-03-19] MEDS: VERAPAMIL HCL 180 MG TABCR PO SCH (08:40)
[2017-03-19] MEDS: CLONIDINE HCL 0.1 MG TAB PO SCH (08:41)
[2017-03-19] MEDS: MAGNESIUM OXIDE 400 MG TAB PO SCH (08:41)
[2017-03-19] MEDS: LORATADINE 10 MG TAB PO SCH (08:41)
--- NOTE | 2017-03-19 10:24 | Orthopedic Progress Note ---
Orthopedic Progress Note Date of Service Mar 19, 2017. Subjective Post OP Day: 1 Reports: feeling well, pain controlled w PO medications, Denies: SOB, calf pain , chest pain, complaints, light headedness, nausea / vomiting, using FENDER MECHANIC APPRENTICE Objective calves soft nontender, N/V intact, incision C/D/I, A&O x3, hemovac drainage Date Time Temp Pulse Resp B/P Pulse Ox O2 Delivery O2 Flow Rate FiO2 03/19/17 08:10 100 14 100 Room Air 03/19/17 07:38 37.2 97 20 161/80 100 Room Air 03/19/17 07:35 Room Air 03/19/17 05:35 37.0 96 16 136/80 99 Nasal Cannula 2.0 03/19/17 04:16 86 14 98 Nasal Cannula 2.0 03/19/17 03:35 36.9 99 16 135/76 99 Nasal Cannula 2.0 03/19/17 01:35 36.8 97 16 121/71 98 Nasal Cannula 2.0 03/19/17 00:02 92 14 97 Nasal Cannula 2.0 03/18/17 23:35 36.9 96 16 136/77 97 Nasal Cannula 2.0 03/18/17 21:35 37.3 103 16 144/77 97 Nasal Cannula 2.0 03/18/17 20:55 141/77 03/18/17 20:17 110 100 Nasal Cannula 2.0 03/18/17 19:35 36.4 106 16 151/80 98 Nasal Cannula 2.0 03/18/17 19:35 36.4 106 16 151/80 98 Nasal Cannula 2.0 03/18/17 19:00 Nasal Cannula 2.0 03/18/17 17:37 36.7 93 16 126/74 99 Nasal Cannula 2.0 03/18/17 17:35 36.7 93 16 126/74 99 Nasal Cannula 2.0 03/18/17 16:23 90 100 Nasal Cannula 2.0 03/18/17 15:35 36.5 98 16 145/82 100 Nasal Cannula 2.0 03/18/17 15:35 36.5 98 16 145/82 100 Nasal Cannula 2.0 03/18/17 15:30 100 Nasal Cannula 2.0 03/18/17 14:11 36.6 16 152/78 100 Nasal Cannula 4.0 03/18/17 13:35 36.3 93 16 160/84 99 Room Air 4.0 03/18/17 12:50 93 99 Room Air 03/18/17 12:35 36.3 85 16 160/84 100 Nasal Cannula 4.0 03/18/17 12:35 36.3 85 16 160/84 100 Nasal Cannula 4.0 03/18/17 11:35 36.3 80 18 157/81 100 Nasal Cannula 4.0 03/18/17 11:05 36.3 76 16 167/84 100 Nasal Cannula 4.0 03/18/17 11:05 36.3 76 16 167/84 100 Nasal Cannula 4.0 03/18/17 10:35 100 Nasal Cannula 4.0 03/18/17 10:35 36.3 79 18 135/80 100 Nasal Cannula 4.0 03/18/17 10:35 36.3 79 16 135/80 100 Nasal Cannula 4.0 03/18/17 10:35 Nasal Cannula 4.0 Assessment & Plan Assessment: swallowing well, minimal sore throat, no dysphagia, pleased Plan: d/c drain, d/c home
[2017-03-19] MEDS ORDERED: ATV5 PO (10:25)
[2017-03-19] MEDS ORDERED: RXC5 PO (10:25)
--- NOTE | 2017-03-19 10:26 | Discharge Instructions ---
Discharge Instructions Date of Service Mar 19, 2017. Admission Reason for Admission: Cervical Spinal Stenosis Discharge Discharge Diagnosis / Problem: same Discharge Goals Goal(s): Decrease discomfort Activity Recommendations Activity Limitations: per Instructions/Follow-up section . Instructions / Follow-Up Instructions / Follow-Up ACTIVITY RECOMMENDATIONS: SELF CARE INSTRUCTIONS AFTER CERVICAL FUSIONS 1. No smoking. Smoking drastically decreases the chance of a solid fusion. 2. No bending, lifting more than 5 pounds, or twisting (roll like a log when turning in bed). 3. You may shower 3 days after surgery. Thoroughly dry wound. Do not soak in the tub. 4. Cervical collar: Must be worn at all times including sleeping. You may remove the brace only to bath, eat and if you are sitting in a recliner. 5. Please walk as much as you can for exercise. Gradually increase the distance that you walk as your endurance increases. SPECIAL CARE INSTRUCTIONS: VERY IMPORTANT TO READ AND REVIEW A. Do not take any anti-inflammatory medications (i.e. Indocin, Advil, Aspirin, Naprosyn, Aleve, Motrin, etc.) as these may inhibit the chance of a solid fusion. Tylenol is okay to take. B. Your surgical incision has been closed with a cosmetic suture under the skin that will dissolve in about 6 weeks. In 14 days, you can use a pair of clean scissors and cut the suture that is left outside of the skin at the ends of your incision. C. Complications are uncommon, but please contact us if you have any signs or symptoms of: 1. wound infection (fever higher than 102.5 degrees F, redness, separation of wound, drainage, or increasing pain from the incision) 2. blood clots in legs (pain, swelling, redness and warmth in legs) 3. urinary tract infection (fever higher than 102.5 degrees, burning upon urination or increased frequency of urination) 4. nerve problems (inability to walk on your toes or heels, numbness, loss of bowel or bladder control) 5. any other symptoms that concern you. D. Please call the office at if you have any concerns or questions about your operation or recovery. MANAGING PAIN AFTER SPINAL SURGERY 1. Narcotic medication is intended for short-term use and will be provided for surgical pain. Surgical pain usually lasts for a period of 4-6 weeks. Narcotic medication includes Percocet, Vicodin, Darvocet, Tylenol #3 or Lortab. 2. Longer-term pain is more appropriately treated with non-narcotic medication such as Tylenol ES. 3. Muscle spasm is not appropriately treated with narcotics. Muscle relaxers such as Soma, Flexeril or Skelaxin can be used along with Tylenol ES. 4. Remember that we all live with some "aches and pains". This is not unusual or uncommon after an injury or as we get older. 5. We will provide appropriate medication within the normal guidelines of their prescribed use. We will also be very cautious and aware of potential abuse and extended duration of patients' medication needs. 6. Please allow 2-3 days to process refills. Prescriptions will not be mailed but must be picked up at the office. FOLLOW UP VISIT: Keep your scheduled follow-up appointment. Any questions, please call the office at . Current Hospital Diet Patient's current hospital diet: Clear Liquid Diet Discharge Diet Recommended Diet: Regular Diet Procedures Procedures Performed: C5-C6 Anterior Cervical Discectomy and Fusion Pending Studies Studies pending at discharge: no Medical Emergencies . Who to Call and When: Medical Emergencies: If at any time you feel your situation is an emergency, please call 911 immediately. . Non-Emergent Contact Non-Emergency issues call your: Surgeon . "Provider Documentation" section prepared by Indra Dunne. . VTE Core Measure Inpt VTE Proph given/why not?: SCD's [place] Drug Monitoring Program Search Results: patient reviewed within database, no issues identified
--- NOTE | 2017-03-19 13:03 | Anesthesiology Progress Note ---
Anesthesia Post Op Note Date & Time Mar 19, 2017 at 13:01 Vital Signs Pain Intensity: 2.0 Vital Signs Past 12 Hours Date Time Temp Pulse Resp B/P Pulse Ox O2 Delivery O2 Flow Rate FiO2 03/19/17 10:46 37.2 100 14 100 Room Air 03/19/17 08:10 100 14 100 Room Air 03/19/17 07:38 37.2 97 20 161/80 100 Room Air 03/19/17 07:35 Room Air 03/19/17 05:35 37.0 96 16 136/80 99 Nasal Cannula 2.0 03/19/17 04:16 86 14 98 Nasal Cannula 2.0 03/19/17 03:35 36.9 99 16 135/76 99 Nasal Cannula 2.0 03/19/17 01:35 36.8 97 16 121/71 98 Nasal Cannula 2.0 Notes Mental Status: alert / awake / arousable, participated in evaluation Pt Amnestic to Procedure: Yes Nausea / Vomiting: adequately controlled Pain: adequately controlled Airway Patency, RR, SpO2: stable & adequate BP & HR: stable & adequate Hydration State: stable & adequate Anesthetic Complications: no major complications apparent
--- NOTE | 2017-04-11 14:52 | DISCHARGE SUMMARY ---
PREOPERATIVE DIAGNOSIS: Cervical disc herniation. BRIEF ADMISSION HISTORY AND HOSPITAL COURSE: The patient was admitted for elective cervical spine surgery. She underwent the surgery on the day of admission without complications and transferred to the floor in stable condition, mobilized well, had her pain well controlled with oral pain medication and tolerated advance of her diet with no dysphagia. She was deemed stable for discharge home postop day 1. Please see the electronic medical record for complete details.
[2017-04-22] MEDS ORDERED: VRPSR180 PO (11:04)
[2017-04-22] MEDS ORDERED: CLR10 PO (11:04)
[2017-04-22] MEDS ORDERED: PROC1TAB5 PO (11:04)
[2017-04-22] MEDS ORDERED: OMEP40CA41 PO (11:41)
[2017-07-11] MEDS ORDERED: PRED20TA PO (14:36)
[2017-07-11] MEDS ORDERED: NRT/25 PO (14:36)
== END 2017-03-19 11:45 | disposition home or self-care (01) ==
LOC: ENRESERVDT → ENRESERVTM → C.ACU 05:38 → C.3E 08:57
PROVIDERS: ADMIT Orthopaedic Surgery Orthopaedic Surgery of the Spine; ATTEND Orthopaedic Surgery Orthopaedic Surgery of the Spine
DX: M50.20 Other cervical disc displacement, unspecified cervical region (principal); M50.322 Other cervical disc degeneration at C5-C6 level; J44.9 Chronic obstructive pulmonary disease, unspecified; F41.9 Anxiety disorder, unspecified; F17.200 Nicotine dependence, unspecified, uncomplicated; Z98.890 Other specified postprocedural states; Z90.710 Acquired absence of both cervix and uterus; Z88.0 Allergy status to penicillin; Z88.1 Allergy status to other antibiotic agents; Z68.1 Body mass index [BMI] 19.9 or less, adult

== ENCOUNTER 2017-04-22 15:30 | Emergency (ER) | payer BC ==
[~2017-04-22] VITALS: Ht 165.1 cm; Wt 49.6 kg
[~2017-04-22 15:30] MED LIST changes: +ATV5 PO; +CLR10 PO; +OMEP40CA41 PO; +PROC1TAB5 PO; +RXC5 PO; +VRPSR180 PO
[2017-04-22 15:35] VITALS: TEMP 36.7; Ht 165.1 cm; Wt 49.6 kg
[2017-04-22] MEDS ORDERED: CTP1CL PO (15:37)
[2017-04-22] MEDS ORDERED: ASPI-390 PO (15:39)
[2017-04-22] MEDS ORDERED: DiphenhydrAMINE HCL 50 MG/ML VIAL IV STA (16:59)
[2017-04-22] MEDS ORDERED: HYDROmorphone INJ 1 MG/ML SYR IV STA (16:59)
[2017-04-22] MEDS ORDERED: PROCHLORPERAZINE 5 MG/ML 2 ML VIAL IV STA (16:59)
[2017-04-22] MEDS ORDERED: SODIUM CHLORIDE 0.9% 1000ML 1,000 ML IV ONE (17:00)
[2017-04-22] MEDS ORDERED: ATV5X PO (17:56)
[2017-04-22] MEDS ORDERED: FLNIN/ NAE (17:56)
[2017-04-22] MEDS ORDERED: LRS10 PO (17:56)
[2017-04-22] MEDS ORDERED: ZLF/50 PO (17:56)
[2017-04-22] MEDS ORDERED: POTA99TA PO (17:56)
[2017-04-22] MEDS ORDERED: DIPH50TA10 PO (17:58)
[2017-04-22] MEDS ORDERED: ONDA4TAB9 PO (18:49)
[2017-04-22 19:05] VITALS: BP 174/89; PULSE 77; O2SAT 98
[2017-04-22] MEDS ORDERED: MAGN400T6 PO (21:13)
--- NOTE | 2017-04-22 22:19 | EMERGENCY ROOM VISIT NOTE ---
ED Visit Note First contact with patient: 16:22 CHIEF COMPLAINT: Migraine headache HISTORY OF PRESENT ILLNESS: Ms. Mello is a 51 year-old white female who ambulates into the ED accompanied by her complaining of a migraine headache. Historically historically she has a history of migraine headaches. Patient also reports that she recently had a discectomy and fusion of the cervical spine that was felt to be related to her migraine headaches in February 2017. She reports a gradual onset of a severe migraine headache that started approximately 8 hours ago. The pain is constant and it is slowly increasing in severity. This is not the worst headache of the life and is similar to previous migraines. Currently she describes the headache as a pressure sensation/pain in the right temporoparietal area and behind the eye. She rates the pain a 10/10. The pain is radiating into the occipital and cervical spine area. She reports taking Excedrin Migraine without relief of pain. There is been associated light sensitivity, nausea without vomiting and mild blurry vision. She denies fevers , chills, sweats, skin eruptions, skin color changes, dizziness, lightheadedness , recent direct trauma, repetitive trauma, upper respiratory tract symptoms, sinus infections, sore throat, neck pain/stiffness, shortness of breath, chest pain, abnormal neurological symptoms, abdominal pain, extremity weakness/ numbness/tingling. REVIEW OF SYSTEMS: As noted above in History of Present Illness; all body systems were reviewed the patient found to be negative unless noted above otherwise. PAST MEDICAL HISTORY: (1) Chronic migraine without aura (2) DDD (degenerative disc disease), cervical (3) Epigastric abdominal pain (4) H/O gastric ulcer (5) Intractable migraine CURRENT MEDICATIONS: Medications Dose Route/Sig Max Daily Dose Days Date Category Dose Instructions Diphenhydramine Hcl (Diphenhydramine Hcl (Sleep)) 50 Mg Tab 50 Mg PO BID PRN 04/22/17 Reported Baclofen 10 Mg Tab 10-20 Mg PO Q8 PRN 04/22/17 Reported TAKE 1-2 TABLETS EVERY 8 HOURS IF NEEDED FOR NECK/BACK PAIN, STIFFNESS AND/OR HEADACHES Lorazepam 0.5 Mg Tab 0.5 Mg PO BID PRN 04/22/17 Reported Sertraline HCl 50 Mg Tab 50 Mg PO QAM 04/22/17 Reported Fluticasone Propionate 120 Sprays/6000 Mcg Inha 2 Sprays YANNI DAILY PRN 04/22/17 Reported Potassium 99 Mg Tab 99 Mg PO QAM 04/22/17 Reported Claritin (Loratadine) 10 Mg Tab 10 Mg PO QAM 03/11/17 Reported Compazine (Prochlorperazine Maleate) 10 Mg Tab 10 Mg PO Q6H PRN 03/11/17 Reported Verapamil HCl ER (Verapamil HCl) 180 Mg Tabcr 180 Mg PO QAM 03/11/17 Reported Mag-Ox (Magnesium Oxide) 400 Mg Tab 400 Mg PO QAM 02/16/17 Reported Ondansetron HCl (Ondansetron) 4 Mg Tab 4 Mg PO Q8 PRN 02/10/17 Reported Excedrin Migraine (Ezipsqw-Odgckgulsailt-Ypxtnzov) 1 Tab Tab 1 Tab PO UD PRN 01/29/17 Reported TAKE PER PACKAGE DIRECTIONS Catapres (Clonidine Hcl) 0.1 Mg Tab 0.1 Mg PO TID 01/29/17 Reported Prilosec (Omeprazole) 40 Mg Cap 40 Mg PO QAM 02/08/15 Reported ALLERGIES TO MEDICATIONS: Ciprofloxacin, clarithromycin, ketorolac tromethamin lithium, NSAIDs, penicillin, quinolones, varenicline, sulfa. SOCIAL HISTORY: Patient is not employed; she feels safe in her home environment ; she admits to tobacco use and denies alcohol use. PHYSICAL EXAM: Vital Signs: Date Time Temp Pulse Resp B/P Pulse Ox O2 Delivery O2 Flow Rate FiO2 04/22/17 19:05 77 20 174/89 98 04/22/17 19:01 77 20 174/89 98 04/22/17 17:39 75 18 160/86 99 Room Air 04/22/17 15:35 36.7 82 18 136/73 100 Room Air GENERAL: 51 year-old white female in moderate distress due to pain, afebrile and hemodynamically stable. Found lying in a darkened room. NEUROLOGIC: Awake, alert and oriented to person place and time. Answering questions appropriately and following commands. Cranial nerves II-XII grossly intact. No focal neurologic deficits noted. SKIN: Warm, dry and pink. No rashes, lesions or soft tissue trauma noted. HEENT: Normocephalic, atraumatic. PERRLA. EOMI without nystagmus. Sclera anicteric. Funduscopic examination deferred due to light sensitivity. No frontal or maxillary sinus erythema or tenderness. Normal-appearing tympanic membranes. No nasal drainage. Oral cavity is moist and pink. No posterior pharyngeal erythema or edema. No JVD. Trachea midline. NECK: Soft and supple. No tenderness through the central cervical region or cervical musculature. No meningismus. Full range of motion of the cervical spine. THORAX: Lungs clear to auscultation and equal bilaterally with no wheezing, crackles, rhonchi or stridor and equal chest wall movements. HEART: Regular rate and rhythm with no murmurs, rubs or gallops. ABDOMEN: Soft and nontender with bowel sounds present in all quadrants; no rigidity, rebound tenderness, organomegaly or guarding. MUSCULOSKELETAL: Full range of motion of all joints without any significant discomfort and the gait is normal. ED COURSE: Patient is assessed with history and physical examination. Patient was hydrated with normal saline and she received 25 mg of Benadryl IV, 10 mg of Compazine and 1 mg of the Dilaudid IV for her symptoms. Patient was reassessed. Patient was educated about her condition and instructed on her treatment plan; she verbalized understanding and agreement with this plan. CLINICAL IMPRESSION: Migraine headache. DECISION MAKIN-year-old female who presents for evaluation of headache. She is afebrile, well appearing, and hemodynamically stable. She has no signs of a sinus, dental , or ear infection and no evidence of meningismus. She is neurologically intact. I do not suspect a headache to be secondary to a subarachnoid hemorrhage, meningitis, encephalitis, or intracranial mass lesion. DISPOSITION: Patient was discharged to home in stable condition accompanied by her ; prior to departure she was reassessed and subjectively reported she was feeling much better. DISCHARGE INSTRUCTIONS: Rest at home, in a quiet darkened room and allow the medication to work for the pain. Continue to follow up current treatment plan prescribed by your physician for your migraine headaches. See your own doctor in follow-up this week for continued care and treatment. Return to the emergency department as needed for worsening/uncontrolled pain, fevers, abnormal neurological symptoms or any new/concerning symptoms.
[2017-07-11] MEDS ORDERED: NRT/25 PO (14:36)
[2017-07-11] MEDS ORDERED: PRED20TA PO (14:36)
== END 2017-04-22 19:06 | disposition home or self-care (01) ==
LOC: C.EDB 15:32 → C.EDD 19:06
DX: G43.909 Migraine, unspecified, not intractable, without status migrainosus (principal); M50.30 Other cervical disc degeneration, unspecified cervical region; F17.200 Nicotine dependence, unspecified, uncomplicated; Z87.11 Personal history of peptic ulcer disease; Z88.0 Allergy status to penicillin; Z88.2 Allergy status to sulfonamides; Z88.8 Allergy status to other drugs, medicaments and biological substances

== ENCOUNTER → 2017-05-10 | Outpatient (CLI) | payer BC ==
[~2017-05-10] MED LIST changes: +ASPI-390 PO; -ATV5 PO; +ATV5X PO; +BUTA1CAP17 PO; +BUTACAP10 PO; +CTP1CL PO; +DIHY1INJ4 INJ; +DIPH50TA10 PO; +FLNIN/ NAE; -LAMO25TA PO; +LRS10 PO; +MAGN400T6 PO; -NCDT21 EXT; -NORT50CA PO; +NRT/25 PO; +NYSS/ PO; +ONDA4TAB9 PO; +POTA99TA PO; -POTASSIUM; +PRED20TA PO; -RXC5 PO; +ULT50 PO; +VERA180C3 PO; +VERA180T10 PO; +VERA240C3 PO; +ZLF/50 PO
[2017-05-10 10:45] LABS: BASO % 0.3 %; BASO ABS # 0.04 K/uL (0-0.2); COMPLETE YES; EOS % 0.6 %; HEMATOCRIT 43.4 % (37-47); IG% 0.3 %; MEAN CELL VOLUME 99.1 fL (80-100); MEAN CORPUSCULAR HGB CONC 32.3 g/dl (32-36); MEAN PLATELET VOLUME 9.2 fL (7.4-10.4); MONO % 5.6 %; NEUT % 73.2 %; PLATELET COUNT 378 K/uL (130-400); RED BLOOD COUNT 4.38 M/uL (4.2-5.4); WHITE BLOOD COUNT 11.52 K/uL (4.8-10.8)
[2017-05-10 10:51] LABS: URINE APPEARANCE CLEAR (CLEAR); URINE BILIRUBIN NEG (NEG); URINE COLOR YELLOW; URINE EPITHELIAL CELL AUTO >30 /lpf (0-5); URINE NITRITE NEG (NEG); URINE SPECIFIC GRAVITY 1.019 (1.000-1.030); UROBILINOGEN NEG (NEG)
[2017-05-10 10:53] LABS: MANUAL MICROSCOPIC REQUIRED? NO; REVIEW REQ? NO
[2017-05-10 11:21] LABS: ALT/SGPT 18 U/L (12-78); AST/SGOT 14 U/L (15-37); BLOOD UREA NITROGEN 10 mg/dl (7-18); BUN/CREATININE RATIO 12.9 (10-20); CALCIUM 8.7 mg/dl (8.5-10.1); CARBON DIOXIDE 23 mmol/L (21-32); CHLORIDE 113 mmol/L (98-107); CREATININE 0.78 mg/dl (0.60-1.20); GLUCOSE 71 mg/dl (70-99); POTASSIUM 3.8 mmol/L (3.5-5.1); SODIUM 143 mmol/L (136-145)
[2017-05-10 11:32] LABS: ALB/GLOB RATIO 1.3 (0.9-2); ALKALINE PHOSPHATASE 104 U/L (45-117); THYROID STIMULATING HORMONE 0.776 uIu/ml (0.300-4.500)
--- NOTE | 2017-05-14 08:58 | CODING QUERY MEDICAL NECESSITY ---
SUPPORTING DIAGNOSIS NEEDED Rosanna BENZ, A supporting diagnosis is required for the test/procedure performed on this patient in order for us to be reimbursed by the patient's insurance. Please provide a supporting diagnosis for the following test/procedure listed below next to the test name along with your signature. *If there is no additional diagnosis for this patient that would support the following test/procedure please document that below next to the test/procedure. Test(s)/Procedure(s) that require a supporting diagnosis: * ([id number]) VITAMIN D ASSAY DIAGNOSIS: * ([id number]) B12 VITAMIN LEVEL DIAGNOSIS: DATE OF SERVICE: 05/10/17 Provider Signature: Date: Thank you Salvador Harden [facility] Information Management Once completed, please kindly fax back to [phone] For questions please call [phone]
== END | disposition home or self-care (01) ==
LOC: C.LAB 09:10
PROVIDERS: ATTEND Nurse Practitioner Family
DX: R53.83 Other fatigue (principal); F32.9 Major depressive disorder, single episode, unspecified; R63.0 Anorexia; R63.4 Abnormal weight loss

== ENCOUNTER 2017-07-13 12:10 | Inpatient (IN) | payer BC ==
[~2017-07-13] VITALS: Ht 165.1 cm; Wt 43.7 kg
[~2017-07-13 12:10] MED LIST changes: -BUTA1CAP17 PO; -BUTACAP10 PO; -DIHY1INJ4 INJ; -NYSS/ PO; -ULT50 PO; -VERA180C3 PO; -VERA180T10 PO; -VERA240C3 PO
[2017-07-13] MEDS ORDERED: SODIUM CHLORIDE 0.9% 1000ML 1,000 ML IV STA ×2 (13:19→16:22)
[2017-07-13 13:45] LABS: BASO % 0.1 %; BASO ABS # 0.01 K/uL (0-0.2); COMPLETE YES; EOS % 0.4 %; HEMATOCRIT 45.3 % (37-47); IG% 0.2 %; LYMPH ABS # 3.08 K/uL (1.2-3.4); MEAN CELL VOLUME 97.4 fL (80-100); MEAN CORPUSCULAR HEMOGLOBIN 33.8 pg (25-34); MEAN CORPUSCULAR HGB CONC 34.7 g/dl (32-36); MEAN PLATELET VOLUME 10.3 fL (7.4-10.4); NEUT % 63.3 %; PLATELET COUNT 270 K/uL (130-400); RED BLOOD COUNT 4.65 M/uL (4.2-5.4); WHITE BLOOD COUNT 10.27 K/uL (4.8-10.8)
[2017-07-13 13:55] LABS: BLOOD UREA NITROGEN 11 mg/dl (7-18); BUN/CREATININE RATIO 13.4 (10-20); CALCIUM 9.8 mg/dl (8.5-10.1); CARBON DIOXIDE 26 mmol/L (21-32); CHLORIDE 111 mmol/L (98-107); GLUCOSE 95 mg/dl (70-99); MAGNESIUM 2.4 mg/dl (1.8-2.4); POTASSIUM 3.3 mmol/L (3.5-5.1); SODIUM 144 mmol/L (136-145)
[2017-07-13 13:59] LABS: ALKALINE PHOSPHATASE 103 U/L (45-117); ALT/SGPT 23 U/L (12-78); AST/SGOT 16 U/L (15-37)
[2017-07-13 14:03] LABS: PARTIAL THROMBOPLASTIN RATIO 0.8; PROTHROMBIN TIME (PATIENT) 10.5 SECONDS (9.0-12.0)
--- NOTE | 2017-07-13 14:05 | DIAGNOSTIC IMAGING REPORT ---
CT SCAN OF THE BRAIN WITHOUT IV CONTRAST CLINICAL HISTORY: Migraine headache. COMPARISON STUDY: CT of the brain dated 10/10/2013. TECHNIQUE: Unenhanced axial CT scan of the brain is performed from the vertex to the skull base. Automated dose control exposure was utilized. A dose lowering technique was utilized adhering to the principles of ALARA. CT DOSE: 537.48 mGy.cm FINDINGS: Brain parenchyma: The brain parenchyma is normal in appearance. There is no hemorrhage, mass effect, or evidence of acute territorial ischemia by CT criteria. Gipson-white matter is preserved. No extra-axial fluid collection is seen. Ventricles, sulci, cisterns: Normal in configuration. Intracranial vasculature: The visualized intracranial vasculature at the skull base is normal in appearance. Calvarium: Unremarkable. Sinuses and mastoids: The visualized paranasal sinuses are clear. The mastoid air cells are well pneumatized. Orbits: The bony orbits are grossly intact. IMPRESSION: There is no hemorrhage, mass effect, or evidence of acute territorial ischemia by CT criteria. Electronically signed by: Gideon Horner M.D. 07/13/2017 2:03 PM Dictated Date/Time: 07/13/2017 2:01 PM
[2017-07-13 14:07] LABS: PREG INTERNAL NEGATIVE QC NEG CLEAR BACKGROUND; PREG INTERNAL POSITIVE QC POS CONTROL LINE
[2017-07-13] MEDS ORDERED: ULT50 PO (14:36)
[2017-07-13] MEDS ORDERED: BUTACAP10 PO (14:40)
[2017-07-13] MEDS ORDERED: PROCHLORPERAZINE 5 MG/ML 2 ML VIAL IV STA (15:16)
[2017-07-13] MEDS ORDERED: DiphenhydrAMINE HCL 50 MG/ML VIAL IV STA (15:16)
[2017-07-13] MEDS ORDERED: DEXAMETHASONE SOD INJ 4 MG/ML VIAL IV STA (15:16)
[2017-07-13 15:23] LABS: URINE APPEARANCE CLEAR (CLEAR); URINE BILIRUBIN NEG (NEG); URINE COLOR YELLOW; URINE NITRITE NEG (NEG); URINE SPECIFIC GRAVITY 1.016 (1.000-1.030); UROBILINOGEN NEG (NEG); ZZURINE CULT IF INDIC CATH NO
[2017-07-13 15:25] LABS: MANUAL MICROSCOPIC REQUIRED? NO; REVIEW REQ? NO
[2017-07-13] MEDS ORDERED: LORAZEPAM 2 MG/ML 1 ML VIAL IV STA (16:22)
--- NOTE | 2017-07-13 16:35 | EMERGENCY ROOM VISIT NOTE ---
ED Visit Note First contact with patient: 13:05 This Patient was discussed with the physician Wire Puller, Renee Dinero PA-C. The pertinent historical and physical exam findings were confirmed. I agree with the studies ordered and with the interpretations of these studies. I agree with the disposition and care plan. Lumbar Puncture Indication: DYKES. Verbal consent was obtained after the risks and benefits were explained, including but not limited to headache, bleeding/clotting, scarring, infection, pain, and bone/joint/nerve damage. At this time, the risks of the procedure are less than the risks of NOT performing the procedure. A time out was taken and the correct patient and site identified. The patient was placed in the seated position and the back was prepped with betadine and draped in the standard fashion. The L3 intervertebral space was identified, anesthetized locally with 1 % lidocaine without epinephrine, and the spinal needle was inserted through the skin with the bevel parallel to the dural fibers. The needle was carefully advanced into the lumbar cistern and 4 tubes of clear CSF was obtained. The stylet was replaced and the needle was removed. A bandaid was placed and the patient was placed in the supine position. The patient tolerated the procedure well and there were no complications.
[2017-07-13] MEDS ORDERED: LIDO/EPINEPHRINE/SOD BICARB 20 ML VIAL INFIL ONE (16:41)
[2017-07-13 17:03] LABS: CSF TOTAL PROTEIN 47.2 mg/dl (15.0-45.0)
[2017-07-13 17:13] LABS: CSF CHEMISTRY TUBE # 2
[2017-07-13 17:14] LABS: CSF APPEARANCE CLEAR; CSF COLOR COLORLESS; CSF XANTHOCHROMIC NO XANTHOCHROMIA
[2017-07-13 17:38] LABS: BENZODIAZEPINE, URINE NEG (NEG); COCAINE,URINE NEG (NEG); PHENCYCLIDINE, URINE NEG (NEG)
[2017-07-13] MEDS ORDERED: PHARMACIST DISCHARGE MED REC CONSULT PRN (19:30)
[2017-07-13] MEDS ORDERED: PROCHLORPERAZINE MALEATE 10 MG TAB PO PRN (19:45)
[2017-07-13] MEDS ORDERED: FLUTICASONE PROPIONATE NA SPR 16 GM BTL NAE PRN (19:45)
[2017-07-13] MEDS ORDERED: DIPHENHYDRAMINE HCL 50 MG PO PRN (19:45)
[2017-07-13] MEDS ORDERED: DIHYDROERGOTAMINE MESYLATE 1 MG/ML VIAL SQ ONE (20:15)
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
[2017-07-13] MEDS ORDERED: GADAVIST IV PRN (21:00)
--- NOTE | 2017-07-13 21:08 | DIAGNOSTIC IMAGING REPORT ---
MRI OF THE BRAIN COMBO CLINICAL HISTORY: Migraine headache. Change in mental status. COMPARISON STUDY: CT of the brain dated 07/13/2017. MRI of the brain dated 02/03/2017. TECHNIQUE: MRI of the brain was performed utilizing various T1 and T2-weighted sequences in the axial, sagittal, and coronal planes. Contrast-enhanced sequences were acquired following the administration of 4.5 cc of Gadavist. Several sequence is modestly degraded by motion artifact. FINDINGS: Brain parenchyma: The brain parenchyma is normal in appearance. There is no hemorrhage or mass effect. There is no restricted diffusion to suggest acute ischemia. No enhancing mass lesion is identified on the postcontrast images. Gipson-white matter differentiation is preserved. No extra-axial fluid collection is seen. The cerebellar tonsils are normal in configuration. Ventricles, sulci, and cisterns: Normal in configuration. Pituitary and sella: Unremarkable. Intracranial vasculature: Normal flow voids are maintained at the skull base. Orbits: The bony orbits are grossly intact. Orbital contents are normal in appearance. Sinuses and mastoids: Clear. Calvarium: Unremarkable. Cervical cord: Partially visualized cervical spinal cord is normal in morphology and signal intensity. IMPRESSION: No acute intracranial abnormality. Electronically signed by: Gideon Horner M.D. 07/13/2017 9:07 PM Dictated Date/Time: 07/13/2017 9:04 PM
[2017-07-13 21:30] VITALS: BP 187/93; PULSE 74; TEMP 36.7; O2SAT 100; Ht 165.1 cm; Wt 43.7 kg
[2017-07-13 21:55] VITALS: BP 187/107
[2017-07-13] MEDS: VALPROATE SOD IV 500 MG in DEXTROSE 5% 50ML 50 ML IV SCH (21:57)
[2017-07-13] MEDS: NSS + 20MEQ KCL 1000ML 1,000 ML IV SCH (21:58)
[2017-07-13] MEDS: NORTRIPTYLINE HCL 25 MG CAP PO SCH (21:58)
[2017-07-13] MEDS: CLONIDINE HCL 0.1 MG TAB PO SCH (21:58)
[2017-07-13 23:09] VITALS: BP 175/92; PULSE 82
[2017-07-13] MEDS: HYDROmorphone INJ 0.5 MG/0.5 ML SYR IV PRN (23:09)
--- NOTE | 2017-07-13 23:35 | EMERGENCY ROOM VISIT NOTE ---
History First contact with patient: 13:05 Chief Complaint: HEAD PAIN Stated Complaint: APHASIA, INTRACTABLE MIGRAINE History of Present Illness The patient is a 51 year old female who presents to the Emergency Room accompanied by her for evaluation of a migraine headache and difficulty speaking. History is obtained from the patient's as the patient is unable to speak. He reports that the patient has a history of chronic migraines. She is seen at the [facility] and locally by [facility] neurology. They have tried multiple medications without much relief and he states that her primary care provider is looking into providing her with medical marijuana. He states that the PCP recently started lorazepam and prednisone for the patient's headaches and this seemed to be working well until yesterday. He reports that the patient developed a worsening headache last night. This morning, he had difficulty waking the patient and when he was able to wake her up she seemed unable to speak. The symptoms began approximately 5 hours prior to arrival. The patient reports that the patient overdosed on Fioricet in December of this year. For this reason, he was concerned and counted all of the patient's spells, but states that none of them were missing. He denies any new medications other than the Ativan and prednisone. He states that the patient had weakness of her left arm earlier, but this seems to have resolved. He states that she felt warm yesterday, but does not know of any recent illnesses or fevers. The patient rates her discomfort a 10/10. He states that she seems to be able to understand everything he is saying, but cannot communicate with him. He denies any history of similar symptoms. Review of Systems A complete 10 point review of systems was reviewed with the patient with pertinent positives and negatives as per history of present illness. All else were negative. Past Medical/Surgical History Medical Problems: (1) Aphasia (2) Chronic migraine without aura (3) DDD (degenerative disc disease), cervical (4) Epigastric abdominal pain (5) H/O gastric ulcer (6) Intractable migraine (7) Intractable migraine Family History No pertinent family history Social History Smoking Status: Current Every Day Smoker Alcohol Use: occasionally Drug Use: none Marital Status: Housing Status: lives with significant other Occupation Status: unemployed Current/Historical Medications Scheduled Rfrjjqcphd-Oyhwgaejlyhcv-Abson (Esgic 325/50/40MG), 1 CAP PO BID Clonidine Hcl (Catapres), 0.1 MG PO TID Loratadine (Claritin), 10 MG PO QAM Magnesium Oxide (Mag-Ox), 400 MG PO QAM Nortriptyline Hcl (Pamelor), 1 CAP PO BID Omeprazole (Prilosec), 40 MG PO QAM Potassium (Potassium), 99 MG PO QAM Prednisone (Prednisone), 1 TAB PO BID Sertraline HCl (Sertraline HCl), 50 MG PO QAM Verapamil HCl (Verapamil HCl ER), 180 MG PO QAM Scheduled PRN Hyxqgqw-Mmcecteekzxbk-Bsfuiwij (Excedrin Migraine), 1 TAB PO UD PRN for Migraine Baclofen (Baclofen), 10-20 MG PO Q8 PRN for Neck/Back Pain or Headaches Diphenhydramine Hcl (Sleep) (Diphenhydramine Hcl), 50 MG PO BID PRN for Headache Fluticasone Propionate (Fluticasone Propionate), 2 SPRAYS YANNI DAILY PRN for Allergy Symptoms Lorazepam (Lorazepam), 0.5 MG PO BID PRN for Anxiety Ondansetron (Ondansetron HCl), 4 MG PO Q8 PRN for Nausea Prochlorperazine Maleate (Compazine), 10 MG PO Q6H PRN for Nausea/Headache Tramadol HCl (Tramadol HCl), 1 TAB PO for Pain Physical Exam Vital Signs Date Time Temp Pulse Resp B/P (MAP) Pulse Ox O2 Delivery O2 Flow Rate FiO2 07/13/17 18:20 65 16 134/71 98 Room Air 07/13/17 18:02 64 07/13/17 15:26 55 16 132/75 98 Room Air 07/13/17 14:11 52 07/13/17 14:03 82 16 137/72 98 Room Air 07/13/17 13:38 98 Room Air 07/13/17 12:13 37.2 85 16 178/85 98 Room Air Pain Rating (0-10): 0 Physical Exam VITALS: Vitals are noted on the nurse's note and reviewed by myself. Vital signs stable. GENERAL: This is a 51-year-old female, lying in bed with her eyes closed, moaning in pain, cachectic appearing. SKIN: The skin was without rashes, erythema, edema, or bruising. HEAD: Normocephalic atraumatic. EARS: External auditory canals clear, tympanic membranes pearly gipson without erythema or effusion bilaterally. EYES: Pupils equal round and reactive to light and accommodation. Conjunctivae without injection, sclerae without icterus. Patient unable to perform extraocular movements. MOUTH: Mucous membranes dry. NECK: Supple without nuchal rigidity. No lymphadenopathy. No meningismus. HEART: Regular rate and rhythm without murmurs gallops or rubs. LUNGS: Clear to auscultation bilaterally without wheezes, rales or rhonchi. ABDOMEN: Soft, concave. Nontender to palpation. 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 Strength 5/5 in bilateral lower extremities. NEURO: Patient is intermittently alert. She does respond to verbal stimuli at times, but at other times keeps her eyes closed and does not respond. She is unable to speak. Facial expressions are intact. Normal sensation to touch. Patellar reflexes 2+ bilaterally. Medical Decision & Procedures ER Provider Diagnostic Interpretation: CT SCAN OF THE BRAIN WITHOUT IV CONTRAST FINDINGS: Brain parenchyma: The brain parenchyma is normal in appearance. There is no hemorrhage, mass effect, or evidence of acute territorial ischemia by CT criteria. Gipson-white matter is preserved. No extra-axial fluid collection is seen. Ventricles, sulci, cisterns: Normal in configuration. Intracranial vasculature: The visualized intracranial vasculature at the skull base is normal in appearance. Calvarium: Unremarkable. Sinuses and mastoids: The visualized paranasal sinuses are clear. The mastoid air cells are well pneumatized. Orbits: The bony orbits are grossly intact. IMPRESSION: There is no hemorrhage, mass effect, or evidence of acute territorial ischemia by CT criteria. Laboratory Results 07/13/17 11:55 Red Blood Count 4.65, Mean Corpuscular Volume 97.4, Mean Corpuscular Hemoglobin 33.8, Mean Corpuscular Hemoglobin Concent 34.7, Mean Platelet Volume 10.3, Neutrophils (%) (Auto) 63.3, Lymphocytes (%) (Auto) 30.0, Monocytes (%) (Auto) 6.0, Eosinophils (%) (Auto) 0.4, Basophils (%) (Auto) 0.1, Neutrophils # (Auto) 6.50, Lymphocytes # (Auto) 3.08, Monocytes # (Auto) 0.62, Eosinophils # (Auto) 0.04, Basophils # (Auto) 0.01 07/13/17 11:55 Test 8/20/17 11:55 07/13/17 14:19 07/13/17 14:57 07/13/17 16:30 White Blood Count 10.27 K/uL (4.8-10.8) Red Blood Count 4.65 M/uL (4.2-5.4) Hemoglobin 15.7 g/dL (12.0-16.0) Hematocrit 45.3 % (37-47) Mean Corpuscular Volume 97.4 fL (80-100) Mean Corpuscular Hemoglobin 33.8 pg (25-34) Mean Corpuscular Hemoglobin Concent 34.7 g/dl (32-36) Platelet Count 270 K/uL (130-400) Mean Platelet Volume 10.3 fL (7.4-10.4) Neutrophils (%) (Auto) 63.3 % Lymphocytes (%) (Auto) 30.0 % Monocytes (%) (Auto) 6.0 % Eosinophils (%) (Auto) 0.4 % Basophils (%) (Auto) 0.1 % Neutrophils # (Auto) 6.50 K/uL (1.4-6.5) Lymphocytes # (Auto) 3.08 K/uL (1.2-3.4) Monocytes # (Auto) 0.62 K/uL (0.11-0.59) Eosinophils # (Auto) 0.04 K/uL (0-0.5) Basophils # (Auto) 0.01 K/uL (0-0.2) RDW Standard Deviation 51.7 fL (36.4-46.3) RDW Coefficient of Variation 14.5 % (11.5-14.5) Immature Granulocyte % (Auto) 0.2 % Immature Granulocyte # (Auto) 0.02 K/uL (0.00-0.02) Prothrombin Time 10.5 SECONDS (9.0-12.0) Prothromb Time International Ratio 1.0 (0.9-1.1) Activated Partial Thromboplast Time 21.8 SECONDS (21.0-31.0) Partial Thromboplastin Ratio 0.8 Anion Gap 7.0 mmol/L (3-11) Est Creatinine Clear Calc Drug Dose 60.2 ml/min Estimated GFR () 98.9 Estimated GFR (Non- 85.4 BUN/Creatinine Ratio 13.4 (10-20) Calcium Level 9.8 mg/dl (8.5-10.1) Magnesium Level 2.4 mg/dl (1.8-2.4) Total Bilirubin 0.4 mg/dl (0.2-1) Direct Bilirubin < 0.1 mg/dl (0-0.2) Aspartate Amino Transf (AST/SGOT) 16 U/L (15-37) Alanine Aminotransferase (ALT/SGPT) 23 U/L (12-78) Alkaline Phosphatase 103 U/L (45-117) Total Protein 7.5 gm/dl (6.4-8.2) Albumin 4.3 gm/dl (3.4-5.0) Human Chorionic Gonadotropin, Qual NEG (NEG) Acetaminophen Level < 2 ug/ml (10-30) Ethyl Alcohol mg/dL < 3.0 mg/dl (0-3) Urine Color YELLOW Urine Appearance CLEAR (CLEAR) Urine pH 7.0 (4.5-7.5) Urine Specific Odell 1.016 (1.000-1.030) Urine Protein NEG (NEG) Urine Glucose (UA) NEG (NEG) Urine Ketones NEG (NEG) Urine Occult Blood NEG (NEG) Urine Nitrite NEG (NEG) Urine Bilirubin NEG (NEG) Urine Urobilinogen NEG (NEG) Urine Leukocyte Esterase NEG (NEG) CSF Color COLORLESS CSF Appearance CLEAR CSF WBC 1 /uL (0-5) CSF RBC 0 /uL (0) CSF Xanthrochromic NO XANTHOCHROMIA CSF Cell Count Tube # 4 CSF Chemistry Tube # 2 CSF Glucose 60 mg/dl (40-70) CSF Total Protein 47.2 mg/dl (15.0-45.0) Test 07/13/17 17:07 Urine Opiates Screen NEG (NEG) Urine Methadone, Qualitative NEG (NEG) Urine Barbiturates POS (NEG) Urine Phencyclidine (PCP) Level NEG (NEG) Ur Amphetamine/Methamphetamine NEG (NEG) MDMA (Ecstasy) Screen NEG (NEG) Urine Benzodiazepines Screen NEG (NEG) Urine Cocaine Metabolite NEG (NEG) Urine Marijuana (THC) NEG (NEG) Medications Administered Medications (Trade) Dose Ordered Sig/Yanet Route Start Time Stop Time Status Last Admin Dose Admin Sodium Chloride 1,000 ml @ 999 mls/hr Q1H1M STAT IV 07/13/17 13:19 07/13/17 14:19 DC 07/13/17 13:19 999 MLS/HR Diphenhydramine HCl (Benadryl Inj) 25 mg NOW STAT IV 07/13/17 15:16 07/13/17 15:18 DC 07/13/17 15:16 25 MG Dexamethasone Sodium Phosphate (Decadron Inj) 10 mg NOW STAT IV 07/13/17 15:16 07/13/17 15:18 DC 07/13/17 15:16 10 MG Prochlorperazine Edisylate (Compazine Inj) 5 mg NOW STAT IV 07/13/17 15:16 07/13/17 15:18 DC 07/13/17 15:16 5 MG Sodium Chloride 1,000 ml @ 999 mls/hr Q1H1M STAT IV 07/13/17 16:22 07/13/17 17:22 DC 07/13/17 16:22 999 MLS/HR Lorazepam (Ativan Inj) 0.5 mg NOW STAT IV 07/13/17 16:22 07/13/17 16:23 DC 07/13/17 16:39 0.5 MG ED Course The patient was evaluated as above. Labs were drawn and IV access was obtained. She was hydrated with 1 L normal saline solution. CT scan of the head was performed and read by radiology as above. Patient was reevaluated and her condition is unchanged. Patient was medicated with a combination of Toradol, Benadryl and Compazine for her headache. Patient was reevaluated and is still unable to speak. Patient is able to nod yes or no to questions and states no change in her headache. Lumbar puncture was performed by Dr. Sanchez. Case was discussed with the [facility] hospitalist, Dr. Knight. They agreed to evaluate the patient for admission. Medical Decision The differential diagnosis includes acute intracranial bleed, meningitis, encephalitis, mass or mass effect, sinusitis, infection, tumor, atypical migraine, polypharmacy, CVA, TIA, among others. The patient is a 51-year-old female who presents today complaining of headache accompanied by aphasia and resolved left arm weakness. Labs revealed no leukocytosis, anemia or concerning electrolyte abnormalities. Urinalysis was not suggestive of infection. CT of the head showed no acute abnormalities. Throughout her visit, the patient remained unable to speak and was repeatedly moaning and rocking [id number] due to headache. A lumbar puncture was performed and did not show evidence of infection or subarachnoid hemorrhage. The source of the patient's symptoms is very unclear. She will be admitted to the [facility] service for further neuro workup. Medication Reconcilliation Current Medication List: was personally reviewed by me Blood Pressure Screening Patient's blood pressure: Elevated blood pressure Blood pressure disposition: Elevated BP felt to be situational Impression Primary Impression: Aphasia Additional Impression: Headache Departure Information Dispostion Still a Patient Condition FAIR Referrals Nadine MarteN.P. (PCP) Forms WORK / SCHOOL INSTRUCTIONS, HOME CARE DOCUMENTATION FORM, IMPORTANT VISIT INFORMATION Patient Instructions My [facility] Health Problem Qualifiers
[2017-07-13] MEDS: METHYLPREDNISOLONE IV 60 MG in SYRINGE 0 ML IV SCH (23:38)
[2017-07-14] VITALS (8 sets, daily range): BP systolic 119–187; BP diastolic 64–98; PULSE 84–115; TEMP 36.8–37.5; O2SAT 92–99
[2017-07-14] MEDS: ONDANSETRON INJ 2 MG/ML 2 ML VIAL IV PRN ×2 (01:09→22:33)
[2017-07-14] MEDS: BACLOFEN 10 MG TAB PO PRN ×2 (01:09→09:20)
[2017-07-14] MEDS: HYDROmorphone INJ 0.5 MG/0.5 ML SYR IV PRN ×7 (01:10→23:18)
[2017-07-14] MEDS ORDERED: ACETAMINOPHEN IV 100 ML IV PRN (04:45)
[2017-07-14] MEDS ORDERED: ACETAMINOPHEN IV PRN (04:45)
[2017-07-14] MEDS: NSS + 20MEQ KCL 1000ML 1,000 ML IV SCH ×3 (06:26→22:25)
[2017-07-14 07:16] LABS: BASO % 0.1 %; BASO ABS # 0.01 K/uL (0-0.2); COMPLETE YES; HEMATOCRIT 49.9 % (37-47); IG% 0.2 %; MEAN CORPUSCULAR HEMOGLOBIN 32.6 pg (25-34); MEAN CORPUSCULAR HGB CONC 33.3 g/dl (32-36); MEAN PLATELET VOLUME 9.7 fL (7.4-10.4); MONO % 2.1 %; NEUT % 87.6 %; PLATELET COUNT 272 K/uL (130-400); RED BLOOD COUNT 5.09 M/uL (4.2-5.4); WHITE BLOOD COUNT 13.04 K/uL (4.8-10.8)
[2017-07-14 07:29] LABS: ESTIMATED AVERAGE GLUCOSE 117 mg/dl; HA1C FLAG Normal (Normal)
[2017-07-14 07:58] LABS: BUN/CREATININE RATIO 7.4 (10-20); CALCIUM 9.5 mg/dl (8.5-10.1); CHOLESTEROL/HDL RATIO 4.6; CREATININE 0.78 mg/dl (0.60-1.20); POTASSIUM 4.4 mmol/L (3.5-5.1)
[2017-07-14] MEDS ORDERED: VERAPAMIL HCL 180 MG TABCR PO SCH (09:00)
[2017-07-14] MEDS ORDERED: NON-FORMULARY MEDICATION (Potassium 99 MG) PO SCH (09:00)
[2017-07-14] MEDS ORDERED: ASPIRIN 81 MG ECTAB PO SCH (09:00)
[2017-07-14] MEDS ORDERED: LORATADINE 10 MG TAB PO SCH (09:00)
[2017-07-14] MEDS ORDERED: ENOXAPARIN 40 MG/0.4 ML SYR SQ SCH (09:00)
[2017-07-14] MEDS: METHYLPREDNISOLONE IV 60 MG in SYRINGE 0 ML IV SCH ×3 (09:19→23:18)
[2017-07-14] MEDS: NORTRIPTYLINE HCL 25 MG CAP PO SCH ×2 (09:20→22:04)
[2017-07-14] MEDS: MAGNESIUM OXIDE 400 MG TAB PO SCH (09:20)
[2017-07-14] MEDS: VALPROATE SOD IV 500 MG in DEXTROSE 5% 50ML 50 ML IV SCH ×2 (09:20→21:00)
[2017-07-14] MEDS: CLONIDINE HCL 0.1 MG TAB PO SCH ×3 (09:20→22:04)
[2017-07-14] MEDS: SERTRALINE HCL 50 MG TAB PO SCH (09:20)
[2017-07-14] MEDS: PANTOprazole SOD 40 MG TAB PO SCH (09:20)
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
[2017-07-14] MEDS ORDERED: NYSS/ PO (10:22)
[2017-07-14] MEDS ORDERED: VERA240C3 PO (10:22)
--- NOTE | 2017-07-14 10:31 | Discharge Instructions ---
Discharge Instructions Date of Service Jul 14, 2017. Admission Reason for Admission: Aphasia, Intractable Migraine Discharge Discharge Diagnosis / Problem: Complex Migraine Discharge Goals Goal(s): Decrease discomfort, Improve function, Increase independence, Improve disease control Activity Recommendations Activity Limitations: resume your previous activity Lifting Limitations: gradually increase as tolerated Exercise/Sports Limitations: gradually increase as tolerated May Resume Sexual Activity: when tolerated Shower/Bathe: no limitations Driving or Machine Use: resume 1 day after discharge . Instructions / Follow-Up Instructions / Follow-Up You were admitted to [facility] with inability to speak and intractable migraine and diagnosed with complex migraine. During your stay here you were treated with supportive care. You were seen by neurology who recommended you stop excedrin if at all possible to help prevent recurrent rebound migraines. You may use Esgic as you are already prescribed to help relieve migraines. Imaging studies which were completed include MRI of brain, and were normal. Continue taking all other medications as prescribed. Oral Thrush: You have been given a prescription for nystatin solution to swish and spit for 10 days. Follow up: Follow up with your Primary Care Provider within 1 week. Follow up with neurology as scheduled within 2-4 weeks. Current Hospital Diet Patient's current hospital diet: Regular Diet Discharge Diet Recommended Diet: Regular Diet Pending Studies Studies pending at discharge: no Laboratory Results Hemoglobin A1c Test 07/13/17 11:55 Range/Units Estimated Average Glucose 117 mg/dl Hemoglobin A1c 5.7 H 4.5-5.6 % Lipid Panel Test 07/14/17 07:02 Range/Units Triglycerides Level 285 H 0-150 mg/dl Cholesterol Level 217 H 0-200 mg/dl HDL Cholesterol 47 mg/dl Cholesterol/HDL Ratio 4.6 LDL Cholesterol, Calculated 113 mg/dl Medical Emergencies . Who to Call and When: Medical Emergencies: If at any time you feel your situation is an emergency, please call 911 immediately. . Non-Emergent Contact Non-Emergency issues call your: Primary Care Provider, Neurologist Call Non-Emergent contact if: you have a fever, temperature is above 100.5, your pain is not controlled, your pain is worsening, your pain is unusual for you, your pain is concerning you, you have any medication questions chest pain, shortness of breath, abdominal pain, nausea, vomiting, intractable headache, or if you have any other concerns regarding your health. . Past History Medical & Surgical History: (1) Migraine . "Provider Documentation" section prepared by Jessica Rinaldi. . VTE Core Measure Inpt VTE Proph given/why not?: Enoxaparin (Lovenox)SQ [place] Drug Monitoring Program Search Results: patient reviewed within database, no issues identified
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
--- NOTE | 2017-07-14 15:36 | Hospitalist Progress Note ---
Hospitalist Progress Note Date of Service Jul 14, 2017. Subjective Pt evaluation today including: conversation w/ patient, conversation w/ family , physical exam, chart review, lab review, review of studies The patient was seen and examined this morning. Pt reports feeling a current migraine on the Right temporal region and having photosensitivity along with some nausea. She did see neurology this morning and is in agreement with a trial of fioricet, she has been using Excedrin migraine more recently and cannot seem to stop using it. She plans to follow up with her neurologist at [facility]. She is anticipating discharge to home today. ROS Constitutional: No fever, chills, sweats, fatigue or weakness Eyes: No diplopia, no changes in vision ENT: No sore throat, tinnitus, or trouble swallowing Respiratory: No shortness of breath, No dyspnea at rest or on exertion, no cough or sputum Cardiovascular: No chest pain, palpitations, or flutter Abdomen: No pain, No constipation, No diarrhea, No nausea, No vomiting Musculoskeletal: No calf pain, No joint pain, No swelling Genitourinary : No dysuria or urinary frequency, No hematuria Neurologic: No numbness/tingling, no difficulty with ambulation, no sensory or motor deficits Psychiatric: No depression or anxiety symptoms Endocrine: No fatigue, No weight changes Integumentary: No itch, No rash PE: General: awake, alert, no apparent distress, thin Head: Normocephalic, atraumatic ENT: PERRL, EOMI, + white on tongue, positive erythematous posterior pharynx, mucous membranes moist Chest: Clear to auscultation, on room air, no adventitious breath sounds Cardiac: Regular rate and rhythm, no murmur, no JVD, normal peripheral pulses, good capillary refill Abdominal: NABS x 4 quadrants, soft, nontender to palpation, no rebound, guarding or tenderness Extremities: Normal inspection, no peripheral edema or erythema, calfs nontender to palpation Psych: Normal mood and affect Neuro: AAO x 3, strength intact bilaterally and related 5/5, no motor deficits, speech is clear, no peripheral sensory deficits Objective Vital Signs Date Time Temp Pulse Resp B/P (MAP) Pulse Ox O2 Delivery O2 Flow Rate FiO2 07/14/17 12:38 37.2 97 18 149/72 (97) 99 Room Air 07/14/17 12:00 Room Air 07/14/17 08:00 Room Air 07/14/17 07:27 37.0 102 18 167/76 (106) 99 Room Air 07/14/17 04:31 37.1 115 22 187/98 (127) 92 Room Air 07/14/17 04:00 Room Air 07/14/17 00:10 36.8 86 20 164/86 (112) 97 Room Air 07/14/17 00:00 Room Air 07/13/17 23:09 82 175/92 (119) 07/13/17 21:55 187/107 (133) 07/13/17 21:30 36.7 74 20 187/93 100 Room Air 07/13/17 20:02 58 16 137/72 98 Room Air 07/13/17 18:20 65 16 134/71 98 Room Air 07/13/17 18:02 64 Laboratory Results Last 24 Hours Test 07/13/17 16:30 07/13/17 17:07 07/14/17 01:59 07/14/17 07:02 CSF Color COLORLESS CSF Appearance CLEAR CSF WBC 1 /uL CSF RBC 0 /uL CSF Xanthrochromic NO XANTHOCHROMIA CSF Cell Count Tube # 4 CSF Chemistry Tube # 2 CSF Glucose 60 mg/dl CSF Total Protein 47.2 mg/dl Urine Opiates Screen NEG Urine Methadone, Qualitative NEG Urine Barbiturates POS Urine Phencyclidine (PCP) Level NEG Ur Amphetamine/Methamphetamine NEG MDMA (Ecstasy) Screen NEG Urine Benzodiazepines Screen NEG Urine Cocaine Metabolite NEG Urine Marijuana (THC) NEG Bedside Glucose 86 mg/dl White Blood Count 13.04 K/uL Red Blood Count 5.09 M/uL Hemoglobin 16.6 g/dL Hematocrit 49.9 % Mean Corpuscular Volume 98.0 fL Mean Corpuscular Hemoglobin 32.6 pg Mean Corpuscular Hemoglobin Concent 33.3 g/dl Platelet Count 272 K/uL Mean Platelet Volume 9.7 fL Neutrophils (%) (Auto) 87.6 % Lymphocytes (%) (Auto) 10.0 % Monocytes (%) (Auto) 2.1 % Eosinophils (%) (Auto) 0.0 % Basophils (%) (Auto) 0.1 % Neutrophils # (Auto) 11.43 K/uL Lymphocytes # (Auto) 1.30 K/uL Monocytes # (Auto) 0.27 K/uL Eosinophils # (Auto) 0.00 K/uL Basophils # (Auto) 0.01 K/uL RDW Standard Deviation 52.3 fL RDW Coefficient of Variation 14.4 % Immature Granulocyte % (Auto) 0.2 % Immature Granulocyte # (Auto) 0.03 K/uL Sodium Level 144 mmol/L Potassium Level 4.4 mmol/L Chloride Level 110 mmol/L Carbon Dioxide Level 25 mmol/L Anion Gap 9.0 mmol/L Blood Urea Nitrogen 6 mg/dl Creatinine 0.78 mg/dl Est Creatinine Clear Calc Drug Dose 58.9 ml/min Estimated GFR () 102.0 Estimated GFR (Non- 88.0 BUN/Creatinine Ratio 7.4 Random Glucose 118 mg/dl Calcium Level 9.5 mg/dl Triglycerides Level 285 mg/dl Cholesterol Level 217 mg/dl HDL Cholesterol 47 mg/dl LDL Cholesterol, Calculated 113 mg/dl VLDL Cholesterol, Calculated 57 mg/dl Cholesterol/HDL Ratio 4.6 Test 07/14/17 07:04 Bedside Glucose 103 mg/dl Assessment and Plan This patient is a 51-year-old female with history of chronic daily migraine and medication overuse rebound headaches, here with altered mental status, aphasia, and brief left upper extremity weakness. Also with intractable acute on chronic migraine. Seems to all likely be due to medication overuse and multiple anti-emetics with some tardive dyskinesia. CT head negative, ECG with peaked T waves but no ischemic changes and borderline normal QTc, labs remarkable for hypokalemia at 3.4. UDS positive for barbiturates which is likely from the fioricet. -Neurology was consulted-recommending stopping Excedrin due to rebound headaches , okay with twice daily Fioricet as needed for migraines, no needs for IV Depakote which was initiated during hospital stay, and increase verapamil to 240 mg daily to help control vasospasm and her blood pressure. LP with normal Gram stain, no WBCs, mildly elevated protein with normal glucose , no xanthochromia. There were no arrhythmias or hypokalemia -MRI was unremarkable -Okay to resume home Benadryl and Compazine -Okay to give baclofen when necessary for muscle spasm DC narcotics and do not give in the future as this did not seem to help with migraine -Patient received Solu-Medrol 60 mg IV every 8h in attempts to break the headache cycle during admission. -Zofran only as needed for nausea -Continue home nortriptyline 25 twice a day and magnesium 400 mg in the morning - CSF studies were negative and electrolytes remained stable GERD/PUD-continue PPI, no active issues Depression with anxiety-given medication abuse and chronic medical condition which could exacerbate her underlying depression, could benefit from psychiatric consultation if she is agreeable when she wakes up -Continue Zoloft -Avoid lorazepam Hypertension-labile and seems to be related to pain -Continue clonidine as would not want to precipitate rebound hypertension if it were held -Continue verapamil which is also for migraine prevention Prophylaxis-Lovenox Disposition-full code, discharge within 24 hours. Update- Discussion was held with the patient and family after initial evaluation. They are requesting to stay in the hospital as the patient had a recurrent migraine while here in the hospital. The patient herself feels back to baseline. Discussion was held with Neurology and they recommend trying steriods to break the migraine cycle.
[2017-07-14] MEDS: NYSTATIN SUSP 500,000 U/5 ML UDC PO SCH ×2 (16:47→21:00)
[2017-07-14] MEDS: HEPARIN SOD 5000 UNIT/0.5 ML CARP SQ SCH (21:00)
[2017-07-15] MEDS: HYDROmorphone INJ 0.5 MG/0.5 ML SYR IV PRN ×2 (02:33→05:07)
[2017-07-15] MEDS: ONDANSETRON INJ 2 MG/ML 2 ML VIAL IV PRN (05:07)
[2017-07-15] MEDS: NSS + 20MEQ KCL 1000ML 1,000 ML IV SCH (05:55)
[2017-07-15 06:40] LABS: COMPLETE YES; HEMATOCRIT 42.3 % (37-47); IG% 0.4 %; LYMPH ABS # 1.22 K/uL (1.2-3.4); MEAN CELL VOLUME 96.8 fL (80-100); MEAN CORPUSCULAR HEMOGLOBIN 32.5 pg (25-34); MEAN CORPUSCULAR HGB CONC 33.6 g/dl (32-36); MEAN PLATELET VOLUME 9.6 fL (7.4-10.4); MONO % 3.5 %; NEUT % 87.1 %; PLATELET COUNT 240 K/uL (130-400); RED BLOOD COUNT 4.37 M/uL (4.2-5.4); WHITE BLOOD COUNT 13.58 K/uL (4.8-10.8)
[2017-07-15 07:10] VITALS: BP 152/83; PULSE 89; TEMP 36.9; O2SAT 98
[2017-07-15 07:19] LABS: BUN/CREATININE RATIO 12.7 (10-20); CALCIUM 8.9 mg/dl (8.5-10.1); CREATININE 0.62 mg/dl (0.60-1.20)
[2017-07-15 08:00] VITALS: O2SAT 98
[2017-07-15] MEDS: METHYLPREDNISOLONE IV 60 MG in SYRINGE 0 ML IV SCH (08:33)
[2017-07-15] MEDS: VALPROATE SOD IV 500 MG in DEXTROSE 5% 50ML 50 ML IV SCH (08:34)
[2017-07-15] MEDS: PANTOprazole SOD 40 MG TAB PO SCH (08:35)
[2017-07-15] MEDS: MAGNESIUM OXIDE 400 MG TAB PO SCH (08:35)
[2017-07-15] MEDS: SERTRALINE HCL 50 MG TAB PO SCH (08:35)
[2017-07-15] MEDS: NORTRIPTYLINE HCL 25 MG CAP PO SCH (08:36)
[2017-07-15] MEDS: NYSTATIN SUSP 500,000 U/5 ML UDC PO SCH (08:36)
[2017-07-15] MEDS: CLONIDINE HCL 0.1 MG TAB PO SCH (08:36)
[2017-07-15] MEDS: HEPARIN SOD 5000 UNIT/0.5 ML CARP SQ SCH (08:37)
[2017-07-15] MEDS ORDERED: VERAPAMIL HCL 240 MG TABCR PO SCH (09:00)
[2017-07-15] MEDS ORDERED: BUTACAP10 PO (10:55)
[2017-07-15] MEDS ORDERED: VERA180C3 PO (10:55)
[2017-07-15 11:33] VITALS: BP 152/83; PULSE 89; TEMP 36.9; O2SAT 98
== END 2017-07-15 12:19 | disposition home or self-care (01) | DRG 103 ==
LOC: EDBD 12:10 → C.EDB 12:10 → C.2T 19:30 → ENRESERV 19:44 → C.MS2W 07-14 18:58
PROVIDERS: ADMIT Family Medicine; ATTEND Hospitalist
PROC: 009U3ZX Drainage of Spinal Canal, Percutaneous Approach, Diagnostic (ICD-10-PCS; principal; 2017-07-13)
DX: G43.119 Migraine with aura, intractable, without status migrainosus (principal); R47.01 Aphasia; Z68.1 Body mass index [BMI] 19.9 or less, adult; G44.40 Drug-induced headache, not elsewhere classified, not intractable; G24.01 Drug induced subacute dyskinesia; T39.1X1A Poisoning by 4-Aminophenol derivatives, accidental (unintentional), initial encounter; E87.6 Hypokalemia; K21.9 Gastro-esophageal reflux disease without esophagitis; F41.8 Other specified anxiety disorders; F19.21 Other psychoactive substance dependence, in remission; I10 Essential (primary) hypertension; R63.6 Underweight; F17.210 Nicotine dependence, cigarettes, uncomplicated; Z87.11 Personal history of peptic ulcer disease; Z98.1 Arthrodesis status; Z87.442 Personal history of urinary calculi; Z79.1 Long term (current) use of non-steroidal anti-inflammatories (NSAID); Z79.899 Other long term (current) drug therapy; Z82.0 Family history of epilepsy and other diseases of the nervous system; Z81.8 Family history of other mental and behavioral disorders; Z82.3 Family history of stroke; Z82.49 Family history of ischemic heart disease and other diseases of the circulatory system; Z88.0 Allergy status to penicillin; Z88.1 Allergy status to other antibiotic agents; Z88.2 Allergy status to sulfonamides; Z88.6 Allergy status to analgesic agent; Z88.8 Allergy status to other drugs, medicaments and biological substances

== ENCOUNTER 2017-08-28 02:52 | Emergency (ER) | payer BC ==
[~2017-08-28 02:52] MED LIST changes: -ASPI-390 PO; +BUTACAP10 PO; +NYSS/ PO; -PRED20TA PO; +ULT50 PO; +VERA180C3 PO; -VRPSR180 PO
[2017-08-28 05:14] LABS: HEMATOCRIT 45.2 % (37-47); MEAN CELL VOLUME 96.4 fL (80-100); MEAN CORPUSCULAR HEMOGLOBIN 30.7 pg (25-34); MEAN CORPUSCULAR HGB CONC 31.9 g/dl (32-36); MEAN PLATELET VOLUME 9.4 fL (7.4-10.4); PLATELET COUNT 254 K/uL (130-400); RED BLOOD COUNT 4.69 M/uL (4.2-5.4); WHITE BLOOD COUNT 7.49 K/uL (4.8-10.8)
[2017-08-28 05:18] LABS: ALT/SGPT 24 U/L (12-78); AST/SGOT 17 U/L (15-37); BLOOD UREA NITROGEN 10 mg/dl (7-18); BUN/CREATININE RATIO 14.4 (10-20); CALCIUM 8.5 mg/dl (8.5-10.1); CARBON DIOXIDE 23 mmol/L (21-32); CHLORIDE 115 mmol/L (98-107); CREATININE 0.68 mg/dl (0.60-1.20); GLUCOSE 78 mg/dl (70-99); POTASSIUM 3.5 mmol/L (3.5-5.1); SODIUM 146 mmol/L (136-145)
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
[2017-08-28 05:29] LABS: ALKALINE PHOSPHATASE 113 U/L (45-117)
[2017-08-28] MEDS ORDERED: DIHY1INJ4 INJ (06:19)
[2017-08-28] MEDS ORDERED: BUTA1CAP17 PO (06:19)
[2017-08-28] MEDS ORDERED: VERA180T10 PO (06:19)
[2017-08-28] MEDS ORDERED: VERAPAMIL HCL 180 MG TABCR PO STA (09:27)
[2017-08-28] MEDS ORDERED: NURSING VERBAL MED ORDER ONE (09:30)
[2017-08-28] MEDS ORDERED: VALSARTAN 80 MG TAB PO ONE (09:30)
[2017-08-28] MEDS ORDERED: CLONIDINE HCL 0.1 MG TAB PO ONE ×2 (09:30)
[2017-08-28 10:36] LABS: URINE APPEARANCE CLEAR (CLEAR); URINE BILIRUBIN NEG (NEG); URINE COLOR YELLOW; URINE NITRITE NEG (NEG); URINE SPECIFIC GRAVITY 1.014 (1.000-1.030); UROBILINOGEN NEG (NEG)
[2017-08-28 10:39] LABS: MANUAL MICROSCOPIC REQUIRED? NO; REVIEW REQ? NO
[2017-08-28 12:57] LABS: BENZODIAZEPINE, URINE NEG (NEG); COCAINE,URINE NEG (NEG); PHENCYCLIDINE, URINE NEG (NEG)
--- NOTE | 2017-08-28 15:12 | EMERGENCY ROOM VISIT NOTE ---
ED Visit Note First contact with patient: 15:10 The patient was taken in signout from Dr. Cobos at the change of shift. Please see that note for details. The patient was pending bed placement on a 302 warrant. She had been refusing to take her regular medications. The patient did agree to take her blood pressure medications and these were given. I did see the patient. She asked for her Zoloft at 75 mg and her Prilosec 40 mg. These were ordered. Bed search is still currently underway. The patient was accepted at [facility]. She rested comfortably for the evening. Constable transportation was arranged. The patient was transferred.
--- NOTE | 2017-08-28 15:16 | EMERGENCY ROOM VISIT NOTE ---
ED Visit Note First contact with patient: 08:37 I assumed care at the change of shift, Dr. Sigala had been the physician prior to me. The patient has a signed and completed 302 warrant. She was undergoing medical clearance when I assumed care. The patient was felt medically cleared based on her workup. Nothing concerning was found on her urine or laboratory testing. The patient has refused to take her daily medications while in the emergency room. They have been ordered. Currently, a bed search is underway. Dr. Stanton has assumed care at the change of shift. Diagnosis: Homicidal ideation.
[2017-08-28] MEDS ORDERED: BUTALBITAL/ACETAMIN/CAFFEINE TAB PO STA (15:37)
--- NOTE | 2017-08-28 15:43 | EMERGENCY ROOM VISIT NOTE ---
ED Visit Note First contact with patient: 08:37 As I was leaving the emergency room, the patient did agree to take her clonidine and verapamil orally. She asked for a Fioricet tablet for a headache , this was ordered as well-she does take Fioricet at home for headaches.
[2017-08-28 16:03] VITALS: TEMP 36.8
[2017-08-28] MEDS ORDERED: PANTOprazole SOD 40 MG TAB PO STA (16:06)
[2017-08-28] MEDS ORDERED: SERTRALINE HCL 100 MG TAB PO STA (16:06)
[2017-08-28] MEDS ORDERED: SERTRALINE HCL 50 MG TAB PO ONE (16:45)
[2017-08-29 00:04] VITALS: BP 167/91; PULSE 87; O2SAT 97
== END 2017-08-29 00:05 ==
LOC: EDBD 02:52 → C.EDA 02:53
DX: T42.4X2A Poisoning by benzodiazepines, intentional self-harm, initial encounter (principal); T50.902A Poisoning by unspecified drugs, medicaments and biological substances, intentional self-harm, initial encounter; R45.850 Homicidal ideations; F17.210 Nicotine dependence, cigarettes, uncomplicated; Z79.899 Other long term (current) drug therapy

== ENCOUNTER 2017-12-10 18:12 | Emergency (ER) | payer BC, OTHER ==
[~2017-12-10] VITALS: Ht 165.1 cm; Wt 50.2 kg
[~2017-12-10 18:12] MED LIST changes: +BUTA1CAP17 PO; -BUTACAP10 PO; -CLR10 PO; +DIHY1INJ4 INJ; -FLNIN/ NAE; -NYSS/ PO; -ULT50 PO; -VERA180C3 PO; +VERA180T10 PO
[2017-12-10 18:18] VITALS: TEMP 36.7; Ht 165.1 cm; Wt 50.2 kg
[2017-12-10] MEDS ORDERED: DEXAMETHASONE IV STA (18:32)
[2017-12-10] MEDS ORDERED: PROCHLORPERAZINE 5 MG/ML 2 ML VIAL IV STA (18:32)
[2017-12-10] MEDS ORDERED: DiphenhydrAMINE HCL 50 MG/ML VIAL IV STA (18:32)
[2017-12-10] MEDS ORDERED: ACETAMINOPHEN 500 MG TAB PO STA (18:32)
[2017-12-10] MEDS ORDERED: KETOROLAC TROMETHAMINE 30 MG/ML VIAL IV STA (18:41)
[2017-12-10] MEDS ORDERED: DEXAMETHASONE **PF** INJ 10 MG/ML VIAL ONE (18:48)
[2017-12-10] MEDS ORDERED: ZLF/100 PO (19:11)
[2017-12-10] MEDS ORDERED: LORA-554 (19:11)
[2017-12-10] MEDS ORDERED: NORT75CA2 PO (19:11)
[2017-12-10] MEDS ORDERED: OMEP40CA41 PO (19:11)
[2017-12-10] MEDS ORDERED: CMP/10 PO (19:11)
--- NOTE | 2017-12-10 19:56 | EMERGENCY ROOM VISIT NOTE ---
History Report prepared by Rodolfo: Marlene Alba Under the Supervision of: Dr. Napoleon Manuel D.O. First contact with patient: 18:24 Chief Complaint: HEADACHE Stated Complaint: MIGRAINE History of Present Illness The patient is a 52 year old female who presents to the Emergency Room with complaints of persistent headache starting 3 days ago. The patient has a history of migraines. She is having difficulty getting this migraine to resolve. The pain is in the right side of her head. She describes it as a spike being driven into her head and her eyeball being pushed in. She reports nausea, vomiting, and dry mouth. She has had a decreased appetite. She has blurry vision in her right eye. Source of History: patient Onset: 3 days ago Position: head Quality: other (spike driving into head) Timing: other (persistent) Associated Symptoms: + nausea, + vomiting Note: Pt reports blurry vision in right eye, dry mouth, decreased appetite. Review of Systems See HPI for pertinent positives & negatives. A total of 10 systems reviewed and were otherwise negative. Past Medical & Surgical Medical Problems: (1) Aphasia (2) Chronic migraine without aura (3) DDD (degenerative disc disease), cervical (4) Epigastric abdominal pain (5) H/O gastric ulcer (6) Intractable migraine (7) Intractable migraine Family History Diabetes mellitus Heart disease Hypertension Social History Smoking Status: Current Every Day Smoker Alcohol Use: occasionally Drug Use: none Marital Status: Housing Status: lives with significant other Occupation Status: unemployed Current/Historical Medications Scheduled Clonidine Hcl (Catapres), 0.1 MG PO TID Loratadine (Allergy Relief), 10 MG DAILY Nortriptyline Hcl (Pamelor), 75 MG PO HS Omeprazole (Prilosec), 40 MG PO DAILY Prochlorperazine Maleate (Prochlorperazine Maleate), 10 MG PO PRN UD Sertraline HCl (Sertraline HCl), 100 MG PO QAM Verapamil Hcl (Verapamil Hcl Sa), 180 MG PO DAILY Scheduled PRN Baclofen (Baclofen), 10-20 MG PO Q8 PRN for Neck/Back Pain or Headaches Xthbehluoj-Qcpbqhlwhvrex-Ctcca (Fioricet), 1 CAP PO BID PRN for Headache Lorazepam (Lorazepam), 0.5 MG PO BID PRN for Anxiety Allergies Coded Allergies: Penicillins (Verified Allergy, Severe, ANAPHYLAXIS, 08/28/17) Varenicline (Verified Allergy, Severe, ANGRY - HOSTILE BEHAVIOR, 08/28/17) Sulfa Antibiotics (Verified Allergy, Intermediate, RASH, 08/28/17) Ciprofloxacin (Verified Allergy, Mild, Rash, 08/28/17) Clarithromycin (Verified Allergy, Mild, itching, 08/28/17) Quinolones (Verified Allergy, Mild, ITCHING RASH, 08/28/17) Amoxicillin (Verified Allergy, Unknown, UNKNOWN, 12/10/17) Haloperidol (Verified Allergy, Unknown, UNKNOWN, 12/10/17) Ketorolac (Verified Allergy, Unknown, UNKNOWN, 12/10/17) [place] (Verified Adverse Reaction, Severe, SUICIDAL,ANGRY, 08/28/17) NSAIDs (Verified Adverse Reaction, Unknown, HX STOMAXCH ULCERS-TOLD NOT TO TAKE, 08/28/17) Tramadol (Verified Adverse Reaction, Unknown, HX STOMACH ULCERS-NOT TO TAKE, 08/28/17) Physical Exam Vital Signs Date Time Temp Pulse Resp B/P (MAP) Pulse Ox O2 Delivery O2 Flow Rate FiO2 12/10/17 18:58 82 16 159/93 96 Room Air 12/10/17 18:18 36.7 97 17 153/83 98 Room Air Physical Exam VITAL SIGNS: were reviewed as above. GENERAL:Non-toxic in appearance. SKIN: Warm dry and pink. HEAD: Normocephalic and atraumatic. OROPHARYNX: Is clear and moist NECK: Supple without lymphadenopathy or meningismus. LUNGS: clear. HEART: Regular rate and rhythm. ABDOMEN: Soft and nontender. EXTREMITIES: Warm and well perfused. NEUROLOGICALLY: Awake alert and oriented without focal deficit. Cranial nerves 2 -12 are intact. There is no pronator drift. Cerebellar testing is within normal limits. There is no nystagmus. There is no facial droop. Speech is clear. Vision is grossly normal. MUSCULOSKELETAL: Good muscle tone. No evidence of trauma. Medical Decision & Procedures Medications Administered Medications (Trade) Dose Ordered Sig/Yanet Route Start Time Stop Time Status Last Admin Dose Admin Diphenhydramine HCl (Benadryl Inj) 50 mg NOW STAT IV 12/10/17 18:32 12/10/17 18:36 DC 12/10/17 18:52 50 MG Prochlorperazine Edisylate (Compazine Inj) 10 mg NOW STAT IV 12/10/17 18:32 12/10/17 18:36 DC 12/10/17 18:52 10 MG Acetaminophen (Tylenol Tab) 500 mg NOW STAT PO 12/10/17 18:32 12/10/17 18:36 DC 12/10/17 18:52 500 MG Dexamethasone Sodium Phosphate (Dexamethasone Inj Pf) 10 mg STK-MED ONCE .ROUTE 12/10/17 18:48 12/10/17 18:49 DC 12/10/17 18:51 10 MG ED Course 1828: Previous medical records were reviewed. The patient was evaluated in room B6. A complete history and physical examination was performed. 1831: Acetaminophen 500 mg PO, Compazine Inj 10 mg IV, Benadryl Inj 50 mg IV. 1847: Dexamethasone Sodium Phosphate 10 mg IV. 1955: On reevaluation, the patient is resting comfortably. I discussed the results and findings with the patient. She verbalized agreement of the treatment plan. She was discharged home. 1999: Fioricet Tab 2 tab PO. Medical Decision Differential includes: Acute intracranial bleed, trauma, meningitis, encephalitis, increased intracranial pressure, mass or mass effect, facial or dental infection, temporal arteritis, CVA, TIA, acute hypertensive emergency, sinusitis, carbon monoxide exposure. This is a 52-year-old female who presents to the ED with a chief complaint of a migraine headache. The patient states is similar to previous migraines. Started on Friday. She states that is from the right side. It is associated with some nausea and vomiting. She also reports some blurred vision. The patient's physical exam and neurologic exam were unremarkable. She was ordered IV fluids, IV Benadryl, IV Compazine, Tylenol by mouth, Decadron IV and Toradol IV. The patient declined the Toradol IV as she states that she was told that she could get an ulcer from this. The patient was given 2 Fioricet by mouth, per her request. She was advised that she would not receive narcotics today because this is a chronic complaint and is not indicated for her recurrent migraine issues. She was felt to be stable for discharge and outpatient follow- up. Medication Reconcilliation Current Medication List: was personally reviewed by me Blood Pressure Screening Patient's blood pressure: Elevated blood pressure Blood pressure disposition: Elevated BP felt to be situational Impression Primary Impression: Migraine Scribe Attestation The scribe's documentation has been prepared under my direction and personally reviewed by me in its entirety. I confirm that the note above accurately reflects all work, treatment, procedures, and medical decision making performed by me. Departure Information Dispostion Home / Self-Care Referrals Nadine Marte (PCP) Patient Instructions My [facility] Additional Instructions Follow-up with your doctor for further care and evaluation in 1-2 days. Return to the emergency department for worsening or new symptoms or any concerns. You have been examined and treated today on an emergency basis only. This is not a substitute for, or an effort to provide, complete comprehensive medical care. It is impossible to recognize and treat all injuries or illnesses in a single emergency department visit. It is therefore important that you follow up closely with your doctor. Call as soon as possible for an appointment.
[2017-12-10] MEDS ORDERED: BUTALBITAL/ACETAMIN/CAFFEINE TAB PO STA (20:00)
[2017-12-10 20:13] VITALS: BP 145/82; PULSE 75; O2SAT 96
== END 2017-12-10 20:14 | disposition home or self-care (01) ==
LOC: C.EDB 18:13
DX: R11.2 Nausea with vomiting, unspecified (principal); M50.30 Other cervical disc degeneration, unspecified cervical region; G43.901 Migraine, unspecified, not intractable, with status migrainosus

== ENCOUNTER → 2018-03-28 | Outpatient (CLI) | payer BC ==
[~2018-03-28] MED LIST changes: +CMP/10 PO; -DIHY1INJ4 INJ; -DIPH50TA10 PO; +LORA-554; -MAGN400T6 PO; +NORT75CA2 PO; -NRT/25 PO; -ONDA4TAB9 PO; -POTA99TA PO; -PROC1TAB5 PO; +ZLF/100 PO; -ZLF/50 PO
[2018-03-28 11:21] LABS: HEMATOCRIT 43.9 % (37-47); HEMOGLOBIN 15.6 g/dL (12.0-16.0); MEAN CELL VOLUME 97.1 fL (80-100); MEAN CORPUSCULAR HEMOGLOBIN 34.5 pg (25-34); MEAN CORPUSCULAR HGB CONC 35.5 g/dl (32-36); MEAN PLATELET VOLUME 10.1 fL (7.4-10.4); PLATELET COUNT 281 K/uL (130-400); RED CELL DISTRIBUTION WIDTH CV 15.7 % (11.5-14.5); RED CELL DISTRIBUTION WIDTH SD 56.1 fL (36.4-46.3); WHITE BLOOD COUNT 9.68 K/uL (4.8-10.8)
[2018-03-28 11:56] LABS: ALBUMIN 3.8 gm/dl (3.4-5.0); ALT/SGPT 21 U/L (12-78); AST/SGOT 22 U/L (15-37); BLOOD UREA NITROGEN 15 mg/dl (7-18); CALCIUM 8.9 mg/dl (8.5-10.1); CARBON DIOXIDE 24 mmol/L (21-32); CREATININE 0.89 mg/dl (0.60-1.20); GLUCOSE 73 mg/dl (70-99); POTASSIUM 3.5 mmol/L (3.5-5.1); SODIUM 143 mmol/L (136-145)
[2018-03-28 12:07] LABS: ALKALINE PHOSPHATASE 113 U/L (45-117); CHOLESTEROL 223 mg/dl (0-200); LDL CHOLESTEROL CALCULATED 145 mg/dl; TOTAL PROTEIN 7.7 gm/dl (6.4-8.2)
== END | disposition home or self-care (01) ==
LOC: C.LAB 09:31
PROVIDERS: ATTEND Nurse Practitioner Family
DX: Z86.2 Personal history of diseases of the blood and blood-forming organs and certain disorders involving the immune mechanism (principal); E53.8 Deficiency of other specified B group vitamins; M54.2 Cervicalgia; F43.22 Adjustment disorder with anxiety; F32.9 Major depressive disorder, single episode, unspecified; Z87.19 Personal history of other diseases of the digestive system; Z13.220 Encounter for screening for lipoid disorders

== ENCOUNTER → 2018-06-27 | Outpatient (CLI) | payer BC ==
[~2018-06-27] MED LIST changes: -CMP/10 PO; +PROC10TA5 PO
--- NOTE | 2018-06-29 08:46 | DIAGNOSTIC IMAGING REPORT ---
ABDOMINAL ULTRASOUND, RIGHT UPPER QUADRANT HISTORY: ACUTE RUQ PAIN. COMPARISON: Abdomen and pelvis CT 12/13/2016. FINDINGS: Pancreas: The pancreas demonstrates a normal echotexture. Liver: Unremarkable. Gallbladder: No gallbladder wall thickening. No gallstones. CBD: 4 mm. Right kidney: No hydronephrosis. IMPRESSION: No significant abnormality identified within the right upper quadrant. Electronically signed by: Steve Jones M.D. 06/29/2018 8:45 AM Dictated Date/Time: 06/29/2018 8:43 AM
== END | disposition home or self-care (01) ==
LOC: C.ULTR 10:19
PROVIDERS: ATTEND Nurse Practitioner Family
DX: R10.11 Right upper quadrant pain (principal)

== ENCOUNTER → 2018-06-27 | Outpatient (CLI) | payer BC ==
[2018-06-27 10:40] LABS: HEMATOCRIT 46.2 % (37-47); HEMOGLOBIN 15.9 g/dL (12.0-16.0); MEAN CELL VOLUME 99.4 fL (80-100); MEAN CORPUSCULAR HEMOGLOBIN 34.2 pg (25-34); MEAN CORPUSCULAR HGB CONC 34.4 g/dl (32-36); MEAN PLATELET VOLUME 9.6 fL (7.4-10.4); PLATELET COUNT 240 K/uL (130-400); RED CELL DISTRIBUTION WIDTH SD 54.2 fL (36.4-46.3)
[2018-06-27 11:17] LABS: ALBUMIN 3.8 gm/dl (3.4-5.0); ALKALINE PHOSPHATASE 96 U/L (45-117); ALT/SGPT 21 U/L (12-78); AST/SGOT 18 U/L (15-37); TOTAL PROTEIN 7.1 gm/dl (6.4-8.2)
== END | disposition home or self-care (01) ==
LOC: C.LAB 10:12
PROVIDERS: ATTEND Nurse Practitioner Family
DX: R10.11 Right upper quadrant pain (principal); G43.709 Chronic migraine without aura, not intractable, without status migrainosus